=== PATIENT | male | born 1955 | race Caucasian/White ===

== ENCOUNTER → 2017-01-24 | Outpatient (CLI) | payer OTHER ==
[~2017-01-24] MED LIST: /PANT40TA PO; ASPI81TA3 OR; NAPR-239 OR; NAPR-239 PO; PAIN325T PO
== END ==
LOC: M WUC 12:17
PROVIDERS: ATTEND Emergency Medicine
DX: Z00.00 Encounter for general adult medical examination without abnormal findings (principal)

== ENCOUNTER → 2019-03-18 | Outpatient (CLI) | payer OTHER ==
[~2019-03-18] MED LIST changes: -/PANT40TA PO; +ALEV220T22 PO; +BUSP15TA47 PO; +METF-839 PO; +METO1TAB7 PO; +OMEP20TA9 PO; +PRAZ1CAP PO; +PROT1TAB2 PO; +ROSU40TA3 PO; +SERT-138 PO; +VITA50005 PO
[2019-03-18 19:33] LABS: BLOOD UREA NITROGEN 29 MG/DL (7-18); CALCIUM LEVEL 8.7 MG/DL (8.8-10.2); CARBON DIOXIDE LEVEL 30 MEQ/L (21-32); CHLORIDE LEVEL 106 MEQ/L (98-107); CREATININE FOR GFR 1.04 MG/DL (0.70-1.30); GLOMERULAR FILTRATION RATE > 60.0 (>49); GLUCOSE, FASTING 158 MG/DL (70-100); POTASSIUM SERUM 3.9 MEQ/L (3.5-5.1); SODIUM LEVEL 142 MEQ/L (136-145)
[2019-03-18 20:19] LABS: HEMOGLOBIN A1c 6.8 %
== END ==
LOC: M WUC 15:36
PROVIDERS: ATTEND Physician Assistant
DX: E11.69 Type 2 diabetes mellitus with other specified complication (principal)

== ENCOUNTER → 2021-08-04 | Outpatient (CLI) | payer OTHER ==
[~2021-08-04] MED LIST changes: +OMEP20TA2 PO; -OMEP20TA9 PO; -ROSU40TA3 PO; +ROSU40TA4 PO; +ZOLO100T
== END ==
LOC: M LABSMTC 09:31
PROVIDERS: ATTEND Anesthesiology
DX: Z01.812 Encounter for preprocedural laboratory examination (principal); Z20.822 Contact with and (suspected) exposure to COVID-19

== ENCOUNTER 2021-08-09 07:05 | Day surgery (SDC) | payer OTHER ==
[~2021-08-09] VITALS: Ht 175.3 cm; Wt 103.4 kg
[~2021-08-09 07:05] MED LIST changes: +NS 1,000 ML IV ONE
--- OUTSIDE RECORDS SUMMARY | 2021-08-09 07:11 | CCD | Continuity of Care Document ---
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 AUTM [phone] Problems Active Problems Provider Date Essential hypertension Kendrick Moore JR, MD Onset: 02/16/20 19 Social History Type Date Description Comments Sex Unknown ETOH Use Occasionally consumes alcohol Tobacco Use Start: Unknown Denies Smoking Recreational Drug Use Denies Drug Use Allergies, Adverse Reactions, Alerts Description No Known Drug Allergies Medications Active Medications SIG Qnty Indications Ordering Provide r Date Omeprazole 20mg Capsules DR 2 by mouth every day Unknown Metformin HCL 500mg Tablets 2 Tabs qd Unknown Buspirone HCL 15mg Tablets 1 qd Unknown Aspirin 81 Low Dose 81mg Chewtabs 1 qd Unknown Vitamin D (Ergocalciferol) [id number] Capsules 1 Tab 2 Times A Month Unknown Prazosin HCL 1mg Capsules 2 Tabs 2 X A Day Unknown Rosuvastatin Calcium 40mg Tablets 1 qd Unknown Aleve 220mg Tablets 1 tab by mouth as needed Unknown Immunizations Description No Information Available Vital Signs Date Vital Result Comment 06/11/2021 10:23am BP Systolic 119 mmHg BP Diastolic 81 mmHg Body Temperature 98.0 F Height 69 inches 5'9" Weight 235.38 lb BMI (Body Mass Index) 34.8 kg/m2 [place] Body Weight 160 lb Weight 106.766 kg BSA (Body Surface Area) 2.21 m2 02/24/2019 10:32am BP Systolic 144 mmHg BP Diastolic 80 mmHg Height 69 inches 5'9" Weight 248.38 lb BMI (Body Mass Index) 36.7 kg/m2 [place] Body Weight 160 lb Weight 112.663 kg BSA (Body Surface Area) 2.27 m2 Results Description No Information Available Procedures Description No Information Available Medical Devices Description No Information Available Encounters Description No Information Available Assessments Date Code Description Provider 06/11/2021 Z12.11 Encounter for screening for boby gnant neoplasm of colon JAG Ordonez 06/11/2021 Z86.010 Personal history of colonic poly ps JAG Ordonez 06/11/2021 K21.9 Gastro-esophageal reflux disease without esophagitis JAG Ordonez Plan of Treatment No Information Available Functional Status Description No Information Available Mental Status Description No Information Available Referrals Refer to Dr Reason for Referral Status Appt Date Kendrick Moore JR, MD EGD AND/OR COLONOSCOPY Created [address] [place] [id number] [phone] Kendrick Moore JR, MD SCHED EGD AND/OR COLONOSCOPY Scheduled 06/11/[address] [place] [phone] Kendrick Moore JR, MD Closed [address] [place] [phone]
--- OUTSIDE RECORDS SUMMARY | 2021-08-09 07:11 | CCD ---
Author Author [facility] Organization [facility] Address Unknown Phone Unavailable Care Team Providers Care Quarter Folder Name Role Phone Enoc Hawley MD Unavailable Unavailable Enoc Hawley MD Unavailable Unavailable Enoc Hawley MD Unavailable Unavailable Enoc Hawley MD Unavailable Unavailable Enoc Hawley MD Unavailable Unavailable Enoc Hawley MD Unavailable Unavailable Enoc Hawley MD Unavailable Unavailable Enoc Hawley MD Unavailable Unavailable Enoc Hawley MD Unavailable Unavailable Enoc Hawley MD Unavailable Unavailable Enoc Hawley MD Unavailable Unavailable Enoc Hawley MD Unavailable Unavailable Enoc Hawley MD Unavailable Unavailable Enoc Hawley MD Unavailable Unavailable Enoc Hawley MD Unavailable Unavailable Enoc Hawley MD Unavailable Unavailable Enoc Hawley MD Unavailable Unavailable Enoc Hawley MD Unavailable Unavailable Enoc Hawley MD Unavailable Unavailable Enoc Hawley MD Unavailable Unavailable Enoc Hawley MD Unavailable Unavailable Enoc Hawley MD Unavailable Unavailable Enoc Hawley MD Unavailable Unavailable Enoc Hawley MD Unavailable Unavailable Enoc Hawley MD Unavailable Unavailable Enoc Hawley MD Unavailable Unavailable Enoc Hawley MD Unavailable Unavailable Enoc Hawley MD Unavailable Unavailable Enoc Hawley MD Unavailable Unavailable Enoc Hawley MD Unavailable Unavailable Enoc Hawley MD Unavailable Unavailable Enoc Hawley MD Unavailable Unavailable Enoc Hawley MD Unavailable Unavailable Enoc Hawley MD Unavailable Unavailable Enoc Hawley MD Unavailable Unavailable Enoc Hawley MD Unavailable Unavailable Enoc Hawley MD Unavailable Unavailable Enoc Hawley MD Unavailable Unavailable Enoc Hawley MD Unavailable Unavailable Rj Lou MD Unavailable Unavailable Rj Lou MD Unavailable Unavailable Rj Lou MD Unavailable Unavailable Rj Lou MD Unavailable Unavailable Rj Lou MD Unavailable Unavailable XellRj snow MD Unavailable Unavailable DEMARTINI, M MICAH PA Unavailable Unavailable DEMARTINI, M MICAH PA Unavailable Unavailable DEMARTINI, M MICAH PA Unavailable Unavailable DEMARTINI, M MICAH PA Unavailable Unavailable DEMARTINI, M MICAH PA Unavailable Unavailable DEMARTINI, M MICAH PA Unavailable Unavailable DEMARTINI, M MICAH PA Unavailable Unavailable DEMARTINI, M MICAH PA Unavailable Unavailable DEMARTINI, M MICAH PA Unavailable Unavailable DEMARTINI, M MICAH PA Unavailable Unavailable DEMARTINI, M MICAH PA Unavailable Unavailable DEMARTINI, M MICAH PA Unavailable Unavailable DEMARTINI, M MICAH PA Unavailable Unavailable DEMARTINI, M MICAH PA Unavailable Unavailable DEMARTINI, M MICAH PA Unavailable Unavailable DEMARTINI, M MICAH PA Unavailable Unavailable DEMARTINI, M MICAH PA Unavailable Unavailable DEMARTINI, M MICAH PA Unavailable Unavailable DEMARTINI, M MICAH PA Unavailable Unavailable DEMARTINI, M MICAH PA Unavailable Unavailable DEMARTINI, M MICAH PA Unavailable Unavailable DEMARTINI, M MICAH PA Unavailable Unavailable DEMARTINI, M MICAH PA Unavailable Unavailable DEMARTINI, M MICAH PA Unavailable Unavailable DEMARTINI, M MICAH PA Unavailable Unavailable DEMARTINI, M MICAH PA Unavailable Unavailable DEMARTINI, M MICAH PA Unavailable Unavailable DEMARTINI, M MICAH PA Unavailable Unavailable DEMARTINI, M MICAH PA Unavailable Unavailable DEMARTINI, M MICAH PA Unavailable Unavailable DEMARTINI, M MICAH PA Unavailable Unavailable DEMARTINI, M MICAH PA Unavailable Unavailable DEMARTINI, M MICAH PA Unavailable Unavailable DEMARTINI, M MICAH PA Unavailable Unavailable DEMARTINI, M MICAH PA Unavailable Unavailable DEMARTINI, M MICAH PA Unavailable Unavailable DEMARTINI, M MICAH PA Unavailable Unavailable DEMARTINI, M MICAH PA Unavailable Unavailable DEMARTINI, M MICAH PA Unavailable Unavailable DEMARTINI, M MICAH PA Unavailable Unavailable DEMARTINI, M MICAH PA Unavailable Unavailable DEMARTINI, M MICAH PA Unavailable Unavailable DEMARTINI, M MICAH PA Unavailable Unavailable DEMARTINI, M MICAH PA Unavailable Unavailable DEMARTINI, M MICAH PA Unavailable Unavailable Petrancosta, Harnett Ana PA-C Unavailable Unavailabl e Petrancosta, Harnett Ana PA-C Unavailable Unavailabl e Petrancosta, Harnett Ana PA-C Unavailable Unavailabl e Petrancosta, Harnett Ana PA-C Unavailable Unavailabl e Petrancosta, Harnett Ana PA-C Unavailable Unavailabl e Petrancosta, Harnett Ana PA-C Unavailable Unavailabl e Petrancosta, Harnett Ana PA-C Unavailable Unavailabl e Petrancosta, Harnett Ana PA-C Unavailable Unavailabl e Petrancosta, Harnett Ana PA-C Unavailable Unavailabl e Petrancosta, Harnett Ana PA-C Unavailable Unavailabl e Petrancosta, Harnett Ana PA-C Unavailable Unavailabl e Petrancosta, Harnett Ana PA-C Unavailable Unavailabl e Petrancosta, Harnett Ana PA-C Unavailable Unavailabl e Petrancosta, Harnett Ana PA-C Unavailable Unavailabl e Petrancosta, Harnett Ana PA-C Unavailable Unavailabl e Petrancosta, Harnett Ana PA-C Unavailable Unavailabl e Petrancosta, Harnett Ana PA-C Unavailable Unavailabl e Petrancosta, Harnett Ana PA-C Unavailable Unavailabl e Petrancosta, Harnett Ana PA-C Unavailable Unavailabl e Petrancosta, Harnett Ana PA-C Unavailable Unavailabl e Petrancosta, Harnett Ana PA-C Unavailable Unavailabl e Petrancosta, Harnett Ana PA-C Unavailable Unavailabl e Petrancosta, Harnett Ana PA-C Unavailable Unavailabl e Petrancosta, Harnett Ana PA-C Unavailable Unavailabl e Petrancosta, Harnett Ana PA-C Unavailable Unavailabl e ETIENNE, G EDWARD RPA Unavailable Unavailable ETIENNE, G EDWARD RPA Unavailable Unavailable ETIENNE, G EDWARD RPA Unavailable Unavailable ETIENNE, G EDWARD RPA Unavailable Unavailable ETIENNE, G EDWARD RPA Unavailable Unavailable ETIENNE, G EDWARD RPA Unavailable Unavailable ETIENNE, G EDWARD RPA Unavailable Unavailable ETIENNE, G EDWARD RPA Unavailable Unavailable ETIENNE, G EDWARD RPA Unavailable Unavailable ETIENNE, G EDWARD RPA Unavailable Unavailable ETIENNE, G EDWARD RPA Unavailable Unavailable ETIENNE, G EDWARD RPA Unavailable Unavailable ETIENNE, G EDWARD RPA Unavailable Unavailable ETIENNE, G EDWARD RPA Unavailable Unavailable ETIENNE, G EDWARD RPA Unavailable Unavailable ETIENNE, G EDWARD RPA Unavailable Unavailable ETIENNE, G EDWARD RPA Unavailable Unavailable ETIENNE, G EDWARD RPA Unavailable Unavailable ETIENNE, G EDWARD RPA Unavailable Unavailable ETIENNE, G EDWARD RPA Unavailable Unavailable ETIENNE, G EDWARD RPA Unavailable Unavailable ETIENNE, G EDWARD RPA Unavailable Unavailable ETIENNE, G EDWARD RPA Unavailable Unavailable ETIENNE, G EDWARD RPA Unavailable Unavailable ETIENNE, G EDWARD RPA Unavailable Unavailable ETIENNE, G EDWARD RPA Unavailable Unavailable ETIENNE, G EDWARD RPA Unavailable Unavailable ETIENNE, G EDWARD RPA Unavailable Unavailable ETIENNE, G EDWARD RPA Unavailable Unavailable ETIENNE, G EDWARD RPA Unavailable Unavailable ETIENNE, G EDWARD RPA Unavailable Unavailable ETIENNE, G EDWARD RPA Unavailable Unavailable ETIENNE, G EDWARD RPA Unavailable Unavailable ETIENNE, G EDWARD RPA Unavailable Unavailable ETIENNE, G EDWARD RPA Unavailable Unavailable Lani DALE MD Unavailable Unavailable Lani DALE MD Unavailable Unavailable Lani DALE MD Unavailable Unavailable Lani DALE MD Unavailable Unavailable Lani DALE MD Unavailable Unavailable Lani DALE MD Unavailable Unavailable Lani DALE MD Unavailable Unavailable Lain DALE MD Unavailable Unavailable Lani DALE MD Unavailable Unavailable Lani DALE MD Unavailable Unavailable Lani DALE MD Unavailable Unavailable Lani DALE MD Unavailable Unavailable Lani DALE MD Unavailable Unavailable Lani DALE MD Unavailable Unavailable Lani DALE MD Unavailable Unavailable Lani DALE MD Unavailable Unavailable Lani DALE MD Unavailable Unavailable Lani DALE MD Unavailable Unavailable Lani DALE MD Unavailable Unavailable Lani DALE MD Unavailable Unavailable Lani DALE MD Unavailable Unavailable Lani DALE MD Unavailable Unavailable Lani DALE MD Unavailable Unavailable Lani DALE MD Unavailable Unavailable Lani DALE MD Unavailable Unavailable Lani DALE MD Unavailable Unavailable Lani DALE MD Unavailable Unavailable Lani DALE MD Unavailable Unavailable Lani DALE MD Unavailable Unavailable Lani DALE MD Unavailable Unavailable Lani DALE MD Unavailable Unavailable Lani DALE MD Unavailable Unavailable Lani DALE MD Unavailable Unavailable Lani DALE MD Unavailable Unavailable SUYAPA, Lani DIXON MD Unavailable Unavailable SUYAPA, Lani DIXON MD Unavailable Unavailable SUYAPA, Lani DIXON MD Unavailable Unavailable SUYAPA, Lani DIXON MD Unavailable Unavailable SUYAPA, Lani DIXON MD Unavailable Unavailable SUYAPA, Lani DIXON MD Unavailable Unavailable SUYAPA, Lani DIXON MD Unavailable Unavailable SUYAPA, Lani DIXON MD Unavailable Unavailable SUYAPA, Lani DIXON MD Unavailable Unavailable SUYAPA, Lani DIXON MD Unavailable Unavailable SUYAPA, Lani DIXON MD Unavailable Unavailable SUYAPA, Lani DIXON MD Unavailable Unavailable SUYAPA, Lani DIXON MD Unavailable Unavailable SUYAPA, Lani DIXON MD Unavailable Unavailable SUYAPA, Lani DIXON MD Unavailable Unavailable SUYAPA, Lani DIXON MD Unavailable Unavailable SUYAPA, Lain DIXON MD Unavailable Unavailable SUYAPA, Lani DIXON MD Unavailable Unavailable SUYAPA, Lani DIXON MD Unavailable Unavailable SUYAPA, Lani DIXON MD Unavailable Unavailable SUYAPA, Lani DIXON MD Unavailable Unavailable SUYAPA, Lani DIXON MD Unavailable Unavailable SUYAPA, Lani DIXON MD Unavailable Unavailable SUYAPA, Lani DIXON MD Unavailable Unavailable SUYAPA, Lani DIXON MD Unavailable Unavailable SUYAPA, Lani DIXON MD Unavailable Unavailable SUYAPA, Lani DIXON MD Unavailable Unavailable SUYAPA, Lani DIXON MD Unavailable Unavailable SUYAPA, Lani DIXON MD Unavailable Unavailable SUYAPA, Lani DIXON MD Unavailable Unavailable SUYAPA, Lani DIXON MD Unavailable Unavailable SUYAPA, Lani DIXON MD Unavailable Unavailable SUYAPA, Lani DIXON MD Unavailable Unavailable SUYAPA, Lani DIXON MD Unavailable Unavailable SUYAPA, Lani DIXON MD Unavailable Unavailable SUYAPA, Lani DIXON MD Unavailable Unavailable SUYAPA, Lani DIXON MD Unavailable Unavailable SUYAPA, Lani DIXON MD Unavailable Unavailable SUYAPA, Lani DIXON MD Unavailable Unavailable SUYAPA, Lani DIXON MD Unavailable Unavailable SUYAPA, Lani DIXON MD Unavailable Unavailable SUYAPA, Lani DIXON MD Unavailable Unavailable SUYAPA, Lani DIXON MD Unavailable Unavailable SUYAPA, Lani DIXON MD Unavailable Unavailable SUYAPA, Lani DIXON MD Unavailable Unavailable SUYAPA, Lani DIXON MD Unavailable Unavailable SUYAPA, Lani DIXON MD Unavailable Unavailable SUYAPA, Lani DIXON MD Unavailable Unavailable SUYAPA, Lani DIXON MD Unavailable Unavailable SUYAPA, Lani DIXON MD Unavailable Unavailable SUYAPA, Lani DIXON MD Unavailable Unavailable SUYAPA, Lani DIXON MD Unavailable Unavailable SUYAPA, Lani DIXON MD Unavailable Unavailable SUYAPA, Lani DIXON MD Unavailable Unavailable SUYAPA, Lani DIXON MD Unavailable Unavailable SUYAPA, Lani DIXON MD Unavailable Unavailable SUYAPA, Lani DIXON MD Unavailable Unavailable SUYAPA, Lani DIXON MD Unavailable Unavailable SUYAPA, Lani DIXON MD Unavailable Unavailable SUYAPA, Lani DIXON MD Unavailable Unavailable SUYAPA, Lani DIXON MD Unavailable Unavailable SUYAPA, Lani DIXON MD Unavailable Unavailable SUYAPA, Lani DIXON MD Unavailable Unavailable SUYAPA, F DESTINY MD Unavailable Unavailable Lani DALE MD Unavailable Unavailable SUYAPALani MD Unavailable Unavailable Feliciano, L Monse RPA Unavailable Unavailable Feliciano, L Monse RPA Unavailable Unavailable Feliciano, L Monse RPA Unavailable Unavailable Feliciano, L Monse RPA Unavailable Unavailable Feliciano, L Monse RPA Unavailable Unavailable Feliciano, L Monse RPA Unavailable Unavailable Feliciano, L Monse RPA Unavailable Unavailable Feliciano, L Monse RPA Unavailable Unavailable Feliciano, L Monse RPA Unavailable Unavailable Feliciano, L Monse RPA Unavailable Unavailable Feliciano, L Monse RPA Unavailable Unavailable Feliciano, L Monse RPA Unavailable Unavailable Feliciano, L Monse RPA Unavailable Unavailable Feliciano, L Monse RPA Unavailable Unavailable Feliciano, L Monse RPA Unavailable Unavailable Feliciano, L Monse RPA Unavailable Unavailable Feliciano, L Monse RPA Unavailable Unavailable Feliciano, L Monse RPA Unavailable Unavailable Feliciano, L Monse RPA Unavailable Unavailable Feliciano, L Monse RPA Unavailable Unavailable Feliciano, L Monse RPA Unavailable Unavailable Feliciano, L Monse RPA Unavailable Unavailable Feliciano, L Monse RPA Unavailable Unavailable Feliciano, L Monse RPA Unavailable Unavailable Feliciano, L Monse RPA Unavailable Unavailable Feliciano, L Monse RPA Unavailable Unavailable Feliciano, L Monse RPA Unavailable Unavailable Felicinao, L Monse RPA Unavailable Unavailable Feliciano, L Monse RPA Unavailable Unavailable Feliciano, L Monse RPA Unavailable Unavailable Feliciano, L Monse RPA Unavailable Unavailable Feliciano, L Monse RPA Unavailable Unavailable Grzegorz MARTINEZ MD Unavailable Unavailable Grzegorz MARTINEZ MD Unavailable Unavailable Grzegorz MARTINEZ MD Unavailable Unavailable Grzegorz MARTINEZ MD Unavailable Unavailable Grzegorz MARTINEZ MD Unavailable Unavailable Grzegorz MARTINEZ MD Unavailable Unavailable Grzegorz MARTINEZ MD Unavailable Unavailable Grzegorz MARTINEZ MD Unavailable Unavailable Grzegorz MARTINEZ MD Unavailable Unavailable Grzegorz MARTINEZ MD Unavailable Unavailable Grzegorz MARTINEZ MD Unavailable Unavailable Grzegorz MARTINEZ MD Unavailable Unavailable Grzegorz MARTINEZ MD Unavailable Unavailable Grzegorz MARTINEZ MD Unavailable Unavailable Grzegorz MARTINEZ MD Unavailable Unavailable Grzegorz MARTINEZ MD Unavailable Unavailable Grzegorz MARTINEZ MD Unavailable Unavailable Grzegorz MARTINEZ MD Unavailable Unavailable VANVALKENBURG, Grzegorz MÉNDEZ MD Unavailable Unavailable VANVALKENBURG, Grzegorz MÉNDEZ MD Unavailable Unavailable VANVALKENBURG, M HONEY ABDALLA Unavailable Unavailable VANVALKENBURG, Grzegorz MÉNDEZ MD Unavailable Unavailable VANVALKENBURG, Grzegorz MÉNDEZ MD Unavailable Unavailable VANVALKENBURG, M HONEY ABDALLA Unavailable Unavailable VANVALKENBURG, Grzegorz MÉNDEZ MD Unavailable Unavailable VANVALKENBURG, Grzegorz MÉNDEZ MD Unavailable Unavailable VANVALKENBURG, Grzegorz MÉNDEZ MD Unavailable Unavailable VANVALKENBURG, Grzegorz MÉNDEZ MD Unavailable Unavailable VANVALKENBURG, Grzegorz MÉNDEZ MD Unavailable Unavailable VANVALKENBURG, M HONEY ABDALLA Unavailable Unavailable VANVALKENBURG, M HONEY ABDALLA Unavailable Unavailable VANVALKENBURG, M HONEY ABDALLA Unavailable Unavailable VANVALKENBURG, M HONEY ABDALLA Unavailable Unavailable VANVALKENBURG, M HONEY ABDALLA Unavailable Unavailable VANVALKENBURG, M HONEY ABDALLA Unavailable Unavailable VANVALKENBURG, M HONEY ABDALLA Unavailable Unavailable VANVALKENBURG, Grzegorz MÉNDEZ MD Unavailable Unavailable VANVALKENBURG, Grzegorz MÉNDEZ MD Unavailable Unavailable VANVALKENBURG, Grzegorz MÉNDEZ MD Unavailable Unavailable VANVALKENBURG, Grzegorz MÉNDEZ MD Unavailable Unavailable VANVALKENBURG, Grzegorz MÉNDEZ MD Unavailable Unavailable VANVALKENBURG, M HONEY ABDALLA Unavailable Unavailable VANVALKENBURG, Grzegorz MÉNDEZ MD Unavailable Unavailable VANVALKENBURG, Grzegorz MÉNDEZ MD Unavailable Unavailable VANVALKENBURG, Grzegorz MÉNDEZ MD Unavailable Unavailable VANVALKENBURG, Grzegorz MÉNDEZ MD Unavailable Unavailable VANVALKENBURG, Grzegorz MÉNDEZ MD Unavailable Unavailable VANVALKENBURG, Grzegorz MÉNDEZ MD Unavailable Unavailable VANVALKENBURG, Grzegorz MÉNDEZ MD Unavailable Unavailable VANVALKENBURG, Grzegorz MÉNDEZ MD Unavailable Unavailable VANVALKENBURG, Grzegorz MÉNDEZ MD Unavailable Unavailable VANVALKENBURG, Grzegorz MÉNDEZ MD Unavailable Unavailable VANVALKENBURG, Grzegorz MÉNDEZ MD Unavailable Unavailable VANVALKENBURG, Grzegorz MÉNDEZ MD Unavailable Unavailable VANVALKENBURG, Grzegorz MÉNDEZ MD Unavailable Unavailable VANVALKENBURG, Grzegorz MÉNDEZ MD Unavailable Unavailable VANVALKENBURG, Grzegorz MÉNDEZ MD Unavailable Unavailable VANVALKENBURG, Grzegorz MÉNDEZ MD Unavailable Unavailable VANVALKENBURG, Grzegorz MÉNDEZ MD Unavailable Unavailable VANVALKENBURG, Grzegorz MÉNDEZ MD Unavailable Unavailable VANVALKENBURG, Grzegorz MÉNDEZ MD Unavailable Unavailable VANVALKENBURG, Grzegorz MÉNDEZ MD Unavailable Unavailable VANVALKENBURG, Grzegorz MÉNDEZ MD Unavailable Unavailable VANVALKENBURG, Grzegorz MÉNDEZ MD Unavailable Unavailable VANVALKENBURG, Grzegorz MÉNDEZ MD Unavailable Unavailable VANVALKENBURG, Grzegorz MÉNDEZ MD Unavailable Unavailable VANVALKENBURG, Grzegorz MÉNDEZ MD Unavailable Unavailable VANVALKENBURG, Grzegorz MÉNDEZ MD Unavailable Unavailable VANVALKENBURG, Grzegorz MÉNDEZ MD Unavailable Unavailable Grzegorz MARTINEZ MD Unavailable Unavailable Grzegorz MARTINEZ MD Unavailable Unavailable Re-disclosure Warning The records that you are about to access may contain information from federally-assisted alcohol or drug abuse programs. If such information is present, then the following federally mandated warning applies: This information has been disclosed to you from records protected by federal confidentiality rules (42 CFR part 2). The federal rules prohibit you from making any further disclosure of this information unless further disclosure is expressly permitted by the written consent of the person to whom it pertains or as otherwise permitted by 42 CFR part 2. A general authorization for the release of medical or other information is NOT sufficient for this purpose. The Federal rules restrict any use of the information to criminally investigate or prosecute any alcohol or drug abuse patient.The records that you are about to access may contain highly sensitive health information, the redisclosure of which is protected by Article 27-F of the [facility] Public Health law. If you continue you may have access to information: Regarding HIV / AIDS; Provided by facilities licensed or operated by the [facility] Office of Mental Health; or Provided by the [facility] Office for People With Developmental Disabilities. If such information is present, then the following [facility] mandated warning applies: This information has been disclosed to you from confidential records which are protected by state law. State law prohibits you from making any further disclosure of this information without the specific written consent of the person to whom it pertains, or as otherwise permitted by law. Any unauthorized further disclosure in violation of state law may result in a fine or mcc sentence or both. A general authorization for the release of medical or other information is NOT sufficient authorization for further disc losure. Family History Family Member Name Family Member Gender Family Member Status Date o f Status Description Data Source(s) Unknown Unknown Problem [facility] ([facility] Unknown Male Problem [facility] ([facility] () Encounters Encounter Providers Location Date Indications Data Source(s ) Outpatient Attender: MICAH RM 09/03/2021 12:00: 00 AM [facility] Outpatient Attender: Monse Ibanez/Maylin/Georgina alberto 06/11/2021 10:30:00 AM EDT [facility] ([facility]) Outpatient Referrer: MICAH RM 06/01/2021 12:00:00 AM EDT Arthrodesis status [facility] Arthrodesis status Outpatient Attender: MICAH MARES PAReferrer: Enoc rizo MD [id number] 06/01/2021 12:00:00 AM EDT [facility] Outpatient Attender: HONEY MARTINEZ MDReferrer : HONEY MARTINEZ MD [id number] 04/18/2021 12:00:00 AM EDT [facility] Outpatient Referrer: HONEY MARTINEZ MD 04/18/20 12:00:00 AM EDT Varus deformity, not elsewhere classified, right ankle [facility] Varus deformity, not elsewhere classifie d, right ankle Outpatient Referrer: HONEY MARTINEZ MD 04/18/20 12:00:00 AM EDT Varus deformity, not elsewhere classified, right ankle [facility] Varus deformity, 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 Outpatient Attender: PAT ETIENNE RPA 03/01 11:25:36 AM EDT - 03/01/2021 01:16:26 PM EDT [facility] ([facility] ) Outpatient Attender: Omar Lou MD ER-RAD 02/21/2021 11:58:00 AM EDT [facility] Outpatient Attender: HONEY MARTINEZ MD 01/24/2021 12: 00:00 AM EDT [facility] Outpatient Referrer: HONEY MARTINEZ MD 10/25/20 02:30:37 PM EST Pain in right ankle and joints of right foot [facility] Pain in right ankle and joints of right foot Outpatient Attender: HONEY MARTINEZ MDReferrer : Enoc Hawley MD [id number] 10/25/2020 12:00:00 AM EST - 11/16/2020 12:04:41 PM ES T Varus deformity, not elsewhere classified, right ankle [facility] Varus deformity, not elsewhere classifie d, right ankle Outpatient Referrer: HONEY MARTINEZ MD 10/25/20 12:00:00 AM EST Pain in right ankle and joints of right foot [facility] Pain in right ankle and joints of right foot Outpatient Attender: Ana Nieves PA-C Main Office 10/12/2020 12:30:00 PM EST [facility] ([facility] Medications Medication Brand Name Start Date Product Form Dose Route Admi nistrative Instructions Pharmacy Instructions Status Indications Reaction Description Data Source(s) [facility]. Devices (DURABLE MEDICAL EQUIPMENT SEE SIG) XX [facility] 97 [id number] 04/18/2021 12:00:00 AM EDT active Use as directed. Custom fitted [facility] Aspirin 325 MG Delayed Release Oral Tabl et Aspirin EC 325 MG Oral Tablet Delayed Release Aspirin EC 325 MG Oral Tablet Delayed Release 03/21/20 12:00:00 AM EDT 325 mg Oral active Take 1 tablet by mouth daily [facility] Simvastatin 40 MG Oral Tablet Simvastatin 40 MG Oral T ablet (ZOCOR) Simvastatin 40 MG Oral Tablet (ZOCOR) 03/20/2021 12:00:00 AM EDT active [facility] Insulin Glargine 100 UNT/ML Injectable S olution Insulin Glargine 100 UNIT/ML Subcutaneous Solution (LANTUS) Insulin Glargine 100 UNIT/ML Subcutaneou s Solution (LANTUS) 03/10/2021 12:00:00 AM EDT 15 U Subcutaneous active Inject 15 Units into the skin every morning [facility] Aspirin 325 MG Delayed Release Oral Tabl et Aspirin EC 325 MG Oral Tablet Delayed Release Aspirin EC 325 MG Oral Tablet Delayed Release 03/09/20 12:00:00 AM EDT 325 mg Oral aborted Take 1 tablet by mouth daily [facility] Oxycodone Hydrochloride 5 MG Oral Tablet oxyCODONE HCl 5 MG Oral Tablet (ROXICODONE) oxyCODONE HCl 5 MG Oral Tablet (ROXICODONE) 03/09/2021 12:00:00 AM EDT 5 mg Oral active Take 1 t ablet by mouth every 4 (four) hours as needed for up to 3 days, Max Daily Dose: 30 mg [facility] Metformin hydrochloride 1000 MG Oral Tab let metFORMIN HCl 1000 MG Oral Tablet (GLUCOPHAGE) metFORMIN HCl 1000 MG Oral Tablet (GLUCOPHAGE) 12:00:00 AM EDT 1000 mg Oral active Type 2 Diabetes Mellitus Take 1 tablet by mouth Two times daily with meals Indications: Type 2 Diabetes [facility] Type 2 Diabetes Mellitus Sertraline 100 MG Oral Tablet [Zoloft] Zoloft 100 MG O ral Tablet Zoloft 100 MG Oral Tablet 03/09/2021 12:00:00 AM EDT 200 mg Oral active Take 2 tablets by mouth daily [facility] Acetaminophen 325 MG Oral Tablet Acetaminophen 325 MG Oral T ablet 03/09/2021 12:00:00 AM EDT 650 mg Oral active Take 2 tablets by mouth every 6 (six) hours as needed for up to 10 days [facility] Docusate Sodium 100 MG Oral Capsule Docu sate Sodium 100 MG Oral Capsule (COLACE) Docusate Sodium 100 MG Oral Capsule (COLACE) 03/09/2021 12:00:00 AM EDT 100 mg Oral active Take 1 capsule by mouth Two Times Daily for 10 days [facility] insulin lispro 100 UNIT/ML SC injection HIGH DOSE EATI NG INSULIN patients [id number] 03/09/2021 12:00:00 AM EDT U Subcutaneous active Patient Instructions: Please refer to Insulin Sliding Scale Instructions in the Discharge Instructions. [facility] 24 HR metoprolol succinate 50 MG Extende d Release Oral Tablet metoprolol (TOPROL-XL) 24 hr tablet 50 mg metoprolol (TOPROL-XL) 24 hr tablet 50 mg 03/08/2021 09:00:00 PM EDT 50 mg Oral active 50 mg, Oral, 2 Times Daily, First dose (after last modification) on [facility] 03/08/21 at 2100, For 7 doses
Do not crush or chew
[facility] Medication administered onsite Acetaminophen 325 MG Oral Tablet acetaminophen (TYLENO L) tablet 650 mg acetaminophen (TYLENOL) tablet 650 mg 03/08/2021 06:41:23 PM EDT 65 0 mg Oral active 650 mg, Oral, E very 6 hours PRN, Mild Pain (Pain Scale Score 1- 3), Headaches, Fever, Starting on [facility] 03/08/21 at 1841, For 666 hours
Maximum daily dose of acetaminophen is 3,000 mg from all sources in 24 hours.
[facility] Medication administered onsite Metformin hydrochloride 500 MG Oral Tabl et metFORMIN (GLUCOPHAGE) tablet 1,000 mg metFORMIN (GLUCOPHAGE) tablet 1,000 mg 03/08/2021 06:00:00 PM EDT 1000 mg Oral active Type 2 Diabetes Mellitus 1,000 mg, Oral, 2 Times Daily With Meals, Indications: Type 2 Diabetes Mellitus, First dose (after last modification) on [facility] 03/08/21 at 1800, For 56 doses [facility] Type 2 Diabetes Mellitus Medication administered onsite Insulin Glargine 100 UNT/ML Injectable S olution insulin glargine (LANTUS) injection 12 Units insulin glargine (LANTUS) injection 12 Units 09:00:00 AM EDT 12 U Subcutaneous active 12 Units, Subcutaneous, Every morning, First dose (after last modification) on [facility] 03/08/21 at 0900, For 29 doses
For blood glucose less than 70 mg/dL: follow hypoglycemia protocol ( ) and notify provider. For blood glucose values between 70 mg/dL and 100 mg/dL at bedtime: provide snack (15 grams of carbohydrates) with some protein. Administer FULL DOSE of insulin glargine (LANTUS) after snack. Record snack in I&O's. For blood glucose more than 400 mg/dL: notify provider
[facility] Medication administered onsite Sertraline 50 MG Oral Tablet sertraline (ZOLOFT) table t 200 mg sertraline (ZOLOFT) tablet 200 mg 03/08/2021 09:00:00 AM EDT 200 mg Oral active 200 mg, Oral, Daily Standard, First dose (after last modification) on [facility] 03/08/21 at 0900, For 29 doses [facility] Medication administered onsite insulin lispro (HumaLOG) injection HIGH DOSE EATING IN SULIN patients 1-22 Units [id number] 03/07/2021 06:00:00 PM EDT U Subcutaneous active 1-22 Units, Subcutaneous, Three Times Daily-With Meals, First dose on Fri03/07/21 at 1800, For 30 days
Nursing MUST open the 'SQ Insulin Dosing Charts' Sidebar Report, or, the Patient Summary or Summary Report within the ED.
[facility] Medication administered onsite Sertraline 50 MG Oral Tablet sertraline (ZOLOFT) table t 100 mg sertraline (ZOLOFT) tablet 100 mg 03/07/2021 11:00:00 AM EDT 100 mg Oral aborted 100 mg, Oral, Daily Standard, First dose on Fri03/07/21 at 1100, For 30 days [facility] Medication administered onsite Insulin Glargine 100 UNT/ML Injectable S olution insulin glargine (LANTUS) injection 8 Units insulin glargine (LANTUS) injection 8 Units 03/07/2021 09:30:00 AM EDT 8 U Subcutaneous aborted 8 Units, Subcutaneous, Every morning, First dose on Fri03/07/21 at 0930, For 30 days
For blood glucose less than 70 mg/dL: follow hypoglycemia protocol ( H-) and notify provider. For blood glucose values between 70 mg/dL and 100 mg/dL at bedtime: provide snack (15 grams of carbohydrates) with some protein. Administer FULL DOSE of insulin glargine (LANTUS) after snack. Record snack in I&O's. For blood glucose more than 400 mg/dL: notify provider
[facility] Medication administered onsite aripiprazole 10 MG Oral Tablet ARIPiprazole (ABILIFY) tablet 10 mg ARIPiprazole (ABILIFY) tablet 10 mg 03/07/2021 09:00:00 AM EDT 10 mg Oral active 10 mg, Oral, Daily Standard, First dose on Fri03/07/21 at 0900, For 30 days [facility] Medication administered onsite 24 HR metoprolol succinate 50 MG Extende d Release Oral Tablet metoprolol (TOPROL-XL) 24 hr tablet 50 mg metoprolol (TOPROL-XL) 24 hr tablet 50 mg 03/07/2021 09:00:00 AM EDT 50 mg Oral aborted 50 mg, Oral, Daily Standard, First dose on Fri03/07/21 at 0900, For 30 days
Do not crush or chew
[facility] Medication administered onsite Prazosin 1 MG Oral Capsule prazosin (MINIPRESS) capsul e 1 mg prazosin (MINIPRESS) capsule 1 mg 03/07/2021 09:00:00 AM EDT 1 mg Oral active 1 mg, Oral, Daily Standard, First dose on Fri03/07/21 at 0900, For 30 days
Check vital signs before administering
[facility] Medication administered onsite Rosuvastatin calcium 40 MG Oral Tablet rosuvastatin (C RESTOR) tablet 40 mg rosuvastatin (CRESTOR) tablet 40 mg 03/07/2021 09:00:00 AM EDT 40 mg Oral active 40 mg, Oral, Daily Standard, First dose on Fri03/07/21 at 0900, For 5 doses [facility] Medication administered onsite buspirone hydrochloride 7.5 MG Oral Tablet busPIRone ( BUSPAR) tablet 15 mg busPIRone (BUSPAR) tablet 15 mg 03/07/2021 09:00:00 AM EDT 15 mg O ral active 15 mg, Oral, Daily Standard, First dose on Fri03/07/21 at 0900, For 30 days [facility] Medication administered onsite duloxetine 60 MG Delayed Release Oral Ca psule DULoxetine (CYMBALTA) DR capsule 60 mg DULoxetine (CYMBALTA) DR capsule 60 mg 03/07/2021 09:00:00 AM EDT 60 mg Oral active 60 mg, Oral, D aily Standard, First dose on Fri03/07/21 at 0900, For 30 days
Do not crush or chew
[facility] Medication administered onsite sennosides, SHELTER 8.6 MG Oral Tablet senna tablet 2 tablet sen na tablet 2 tablet 03/06/2021 10:00:00 PM EDT 2 {tbl} Oral active 2 tablet, Oral, Nightly, First dose on Fri03/06/21 at 2200, For 30 days [facility] Medication administered onsite 0.3 ML Enoxaparin sodium 100 MG/ML Prefi lled Syringe enoxaparin sodium (LOVENOX) injection 30 mg enoxaparin sodium (LOVENOX) injection 30 mg 03/06/2021 09:00:00 PM EDT 30 mg Subcutaneous active 30 mg, Subcutaneous, Every 12 hours Standard (2 times per day), First dose on Fri03/06/21 at 2100, For 30 days [facility] Medication administered onsite Docusate Sodium 100 MG Oral Capsule docusate sodium (C OLACE) capsule 100 mg docusate sodium (COLACE) capsule 100 mg 03/06/2021 09:00:00 PM EDT 100 mg Oral active 100 mg, Oral, 2 Times Daily, First dose on Fri03/06/21 at 2100, For 30 days [facility] Medication administered onsite Metformin hydrochloride 500 MG Oral Tablet metFORMIN ( GLUCOPHAGE) tablet 500 mg metFORMIN (GLUCOPHAGE) tablet 500 mg 03/06/2021 06:00:00 PM EDT 500 m g Oral aborted Type 2 Diabetes Mellitus 500 mg, Oral, 2 Times Daily With Meals, Indications: Type 2 Diabetes Mellitus, First dose on Fri03/06/21 at 1800, For 30 days [facility] Type 2 Diabetes Mellitus Medication administered onsite insulin lispro (HumaLOG) injection MEDIU M DOSE EATING INSULIN patients 1-16 Units [id number] 03/06/2021 06:00:00 PM EDT U Subcutaneous aborted 1-16 Units, Subcutaneous, Three Times Daily-With Meals, First dose on Fri03/06/21 at 1800, For 30 days
Nursing MUST open the 'SQ Insulin Dosing Charts' Sidebar Report, or, the Patient Summary or Summary Report within the ED.
[facility] Medication administered onsite Cefazolin 2000 MG Injection ceFAZolin (ANCEF) IVPB 2 g in dextrose (premix) ceFAZolin (ANCEF) IVPB 2 g in dextrose (premix) 03/06/2021 04:00:00 PM EDT 2 g Intravenous completed 2 g, Int ravenous, Administer over 30 Minutes, Every 8 hours, First dose on Fri03/06/21 at 1600, For 2 doses [facility] Medication administered onsite ondansetron (ZOFRAN) injection 4 mg [id number] 03/06/2021 01:30:3 9 PM EDT 4 mg Intravenous active 4 mg, In travenous, Every 6 hours PRN, Nausea, Vomiting, Starting on Fri03/06/21 at 1330, For 30 days [facility] Medication administered onsite Acetaminophen 325 MG Oral Tablet acetaminophen (TYLENO L) tablet 650 mg acetaminophen (TYLENOL) tablet 650 mg 03/06/2021 01:30:39 PM EDT 65 0 mg Oral aborted 650 mg, Oral, E very 6 hours PRN, Mild Pain (Pain Scale Score 1- 3), Starting on Fri03/06/21 at 1330, For 30 days
Maximum daily dose of acetaminophen is 3,000 mg from all sources in 24 hours.
[facility] Medication administered onsite Diazepam 5 MG Oral Tablet diazePAM (VALIUM) tablet 5 m g diazePAM (VALIUM) tablet 5 mg 03/06/2021 01:30:39 PM EDT 5 mg Oral active 5 mg, Oral, Every 6 hours PRN, Muscle spasms, Starting on Fri03/06/21 at 1330, For 4 days 21 hours [facility] Medication administered onsite Bisacodyl 10 MG Rectal Suppository bisacodyl (DULCOLAX ) suppository 10 mg bisacodyl (DULCOLAX) suppository 10 mg 03/06/2021 01:30:39 PM EDT 10 mg Rectal active 10 mg, Rectal, Daily PRN, Constipation, Starting on Fri03/06/21 at 1330, For 30 days [facility] Medication administered onsite Oxycodone Hydrochloride 5 MG Oral Tablet oxyCODONE (ROXICODONE) immediate release tablet 5 mg oxyCODONE (ROXICODONE) immediate release tablet 5 mg 03/06/2021 01:30:39 PM EDT 5 mg Oral active 5 mg, Oral, Every 4 hours PRN, Moderate Pain (Pain Scale Score 4-6), Starting on Fri03/06/21 at 1330, For 4 days 21 hours
If no 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 or when 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 has been DC.
Oxycodone immediate release is limited to 10 mg per dose. Higher doses ( only) require Pain Service consultation and approval.
[facility] Medication administered onsite Oxycodone Hydrochloride 5 MG Oral Tablet oxyCODONE (ROXICODONE) immediate release tablet 10 mg oxyCODONE (ROXICODONE) immediate release tablet 10 mg 03/06/2021 01:30:39 PM EDT 10 mg Oral active 10 mg, Oral, Every 4 hours PRN, Severe Pain (Pain Scale Score 7-10), or pre-painful procedure or activity, Starting on Fri03/06/21 at 1330, For 4 days 21 hours
If no 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 or when 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 has been DC.
Oxycodone immediate release is limited to 10 mg per dose. Higher doses ( only) require Pain Service consultation and approval.
[facility] Medication administered onsite Glucagon 1 MG Injection glucagon (human recombinant) ( GLUCAGEN) injection 1 mg glucagon (human recombinant) (GLUCAGEN) injection 1 mg 03/06/2021 01:30:33 PM EDT 1 mg Intramuscular active 1 mg, Intramuscular, PRN, for glucose <55 without IV access, Starting on Fri03/06/21 at 1330, For 30 days [facility] Medication administered onsite dextrose 50 % IV solution 25 mL [id number] 03/06/2021 01:30:33 PM E DT 25 mL Intravenous active 25 mL, Intrav enous, PRN, Other, blood glucose <55, Starting on Fri03/06/21 at 1330, For 30 days
Not for midline administration.
[facility] Medication administered onsite Glucose 0.417 MG/MG Oral Gel glucose (GLUTOSE) 40 % or al gel 15 g glucose (GLUTOSE) 40 % oral gel 15 g 03/06/2021 01:30:33 PM EDT 15 g Oral active 15 g, Oral, PRN, Low blood s ugar, for gluose 55-69 mg/dl and able to take PO, Starting on Fri03/06/21 at 1330, For 30 days [facility] Medication administered onsite Acetaminophen 325 MG Oral Tablet acetaminophen (TYLENO L) tablet 975 mg acetaminophen (TYLENOL) tablet 975 mg 03/06/2021 06:15:00 AM EDT 97 5 mg Oral completed 975 mg, Oral, O nce, On Fri03/06/21 at 0615, For 1 dose
Maximum daily dose of acetaminophen is 3,000 mg from all sources in 24 hours.
Pre-op [facility] Medication administered onsite Calcium Chloride 0.0014 MEQ/ML / Potassi um Chloride 0.004 MEQ/ML / Sodium Chloride 0.103 MEQ/ML / Sodium Lactate 0.028 MEQ/ML Injectable Solution lactated ringers infusion lactated ringers infusion 03/06/2021 06:15:00 AM EDT Intravenous active at 100 mL/hr, Intravenous, Continuous, Starting on Fri03/06/21 at 0615, For 30 days
Keep Vein Open. Use Wide Tubing.
[facility] Medication administered onsite celecoxib 200 MG Oral Capsule celecoxib (CeleBREX) cap marian 200 mg celecoxib (CeleBREX) capsule 200 mg 03/06/2021 06:15:00 AM EDT 200 mg Oral completed 200 mg, Oral, Once, On Fri at 0615, For 1 dose, Pre-op [facility] Medication administered onsite 24 HR Metformin hydrochloride 500 MG Ext ended Release Oral Tablet metformin (GLUCOPHAGE-XR) 500 MG 24 hr tablet metformin (GLUCOPHAGE-XR) 500 MG 24 hr tablet 08/06/2016 12:00:00 AM EDT 500 mg Oral aborted Take 500 mg by mouth Three times daily with meals [facility] Sertraline 100 MG Oral Tablet [Zoloft] ZOLOFT 100 MG t ablet ZOLOFT 100 MG tablet 07/02/2016 12:00:00 AM EDT aborted [facility] Diclofenac Sodium 75 MG Delayed Release Oral Tablet diclofenac (VOLTAREN) 75 MG EC tablet diclofenac (VOLTAREN) 75 MG EC tablet 05/31/2016 12:00:00 AM EDT aborted [facility] Pravastatin Sodium 40 MG Oral Tablet pravastatin (PRAV ACHOL) 40 MG tablet pravastatin (PRAVACHOL) 40 MG tablet 05/31/2016 12:00:00 AM EDT aborted [facility] Aspirin 81 MG Delayed Release Oral Table t Aspirin 81 MG Oral Tablet Delayed Release Aspirin 81 MG Oral Tablet Delayed Release 81 mg Oral aborted Take 81 mg by mouth daily [facility] celecoxib 200 MG Oral Capsule Celecoxib 200 MG Oral Ca psule (CeleBREX) Celecoxib 200 MG Oral Capsule (CeleBREX) 200 mg Oral aborte d Take 200 mg by mouth Two Times Daily [facility] Insurance Providers Payer name Policy type / Coverage type Policy ID Covered constitution party ID Covered constitution party's relationship to [place]in[place] Policy [place] Plan Information OTHER B [id number] Self [id number] OTHER B [id number] Self [id number] OTHER B [id number] Self [id number] [facility] / [id number] Self [id number] [facility] [employer] [id number] Self [id number] [facility] [employer] [id number] Self [id number] [facility] [employer] [id number] Self [id number] [facility] [employer] [id number] Self [id number] [facility] [employer] [id number] Self [id number] [employer] [id number] SP [id number] [facility] [id number] SP [id number] NON LA CARE [id number] [facility] [employer] [id number] Self [id number] Problems, Conditions, and Diagnoses Code Display Name Description Problem Type Effective Dates Data Source(s) Z98.1 Arthrodesis status Arthrodesis status Diagnosis 03/2021 12:34:14 PM [facility] M25.571 Pain in right ankle and joints of right foot Pain in right ankle and joints of right foot Diagnosis 04/18/2021 02:10:49 PM [facility] M19.071 Primary osteoarthritis, right ankle and foot Primary osteoarthritis, right ankle and foot Diagnosis 04/18/2021 02:10:49 PM [facility] M21.171 Varus deformity, not elsewhere classifie d, right ankle Varus deformity, not elsewhere classified, right ankle Diagnosis 04/18/2021 02:10:49 PM [facility] R52 Pain, unspecified Pain, unspecified Diagnosis 03/06/2021 05:55:00 AM [facility] Arthritis of right ankle [M19.071] Arthritis of right ankle [M19.071] Diagnosis 03/06/2021 05:55:00 AM [facility] Acquired varus deformity of right ankle [M21.171] Acquired varus deformity of right ankle [M21.171] Diagnosis 03/06/2021 05:55:00 AM [facility] M16.12 Unilateral primary osteoarthritis, left hip UNILATERAL PRIMARY OSTEOARTHRITIS, LEFT HIP Diagnosis 02/21/2021 11:58:00 AM [facility] Surgeries/Procedures Procedure Description Date Indications Data Source(s) OFFICE OUTPATIENT VISIT 15 MINUTES 06/11/2021 12:00:00 AM EDT [facility] ([facility], ) POCT GLUCOSE, DOCKED <td>POCT GLUCOSE, DOCKED</td ><td>Routine</td><td>03/09/2021 8:42 AM EDT</td><td></td><td> </td> 03/09/2021 08:42:00 AM [facility] BLOOD COUNT COMPLETE AUTOMATED <td>CBC</td><td>Routine </td><td>03/09/2021 5:50 AM EDT</td><td></td><td> </td> 03/09/2021 05:50:00 AM [facility] GLUCOSE QUANTITATIVE BLOOD XCPT REAGENT STRIP <td>POCT GLUCOSE, DOCKED</td><td>Routine</td><td>03/08/2021 9:18 PM EDT</td><td></td><td> </td> 03/08/2021 09:18:00 PM [facility] GLUCOSE QUANTITATIVE BLOOD XCPT REAGENT STRIP <td>POCT GLUCOSE, DOCKED</td><td>Routine</td><td>03/08/2021 5:39 PM EDT</td><td></td><td> </td> 03/08/2021 05:39:00 PM [facility] RESPIRATORY PATHOGEN PANEL <td>RESPIRATORY PATHOGEN PANEL</td><td>Routine</td><td>03/08/2021 4:52 PM EDT</td><td></td><td> </td> 03/08/2021 04:52:00 PM [facility] COVID-19 PCR <td>COVID-19 PCR</td><td>Rou yuri</td><td>03/08/2021 4:52 PM EDT</td><td></td><td> </td> 03/08/2021 04:52:00 PM [facility] GLUCOSE QUANTITATIVE BLOOD XCPT REAGENT STRIP <td>POCT GLUCOSE, DOCKED</td><td>Routine</td><td>03/08/2021 12:35 PM EDT</td><td></td><td> </td> 03/08/2021 12:35:00 PM [facility] GLUCOSE QUANTITATIVE BLOOD XCPT REAGENT STRIP <td>POCT GLUCOSE, DOCKED</td><td>Routine</td><td>03/08/2021 8:27 AM EDT</td><td></td><td> </td> 03/08/2021 08:27:00 AM [facility] BLOOD COUNT COMPLETE AUTOMATED <td>CBC</td><td>Routine </td><td>03/08/2021 4:31 AM EDT</td><td></td><td> </td> 03/08/2021 04:31:00 AM [facility] GLUCOSE QUANTITATIVE BLOOD XCPT REAGENT STRIP <td>POCT GLUCOSE, DOCKED</td><td>Routine</td><td>03/07/2021 8:57 PM EDT</td><td></td><td> </td> 03/07/2021 08:57:00 PM [facility] GLUCOSE QUANTITATIVE BLOOD XCPT REAGENT STRIP <td>POCT GLUCOSE, DOCKED</td><td>Routine</td><td>03/07/2021 5:37 PM EDT</td><td></td><td> </td> 03/07/2021 05:37:00 PM [facility] GLUCOSE QUANTITATIVE BLOOD XCPT REAGENT STRIP <td>POCT GLUCOSE, DOCKED</td><td>Routine</td><td>03/07/2021 12:26 PM EDT</td><td></td><td> </td> 03/07/2021 12:26:00 PM [facility] GLUCOSE QUANTITATIVE BLOOD XCPT REAGENT STRIP <td>POCT GLUCOSE, DOCKED</td><td>Routine</td><td>03/07/2021 8:53 AM EDT</td><td></td><td> </td> 03/07/2021 08:53:00 AM [facility] HEPATITIS C ANTIBODY <td>HEPATITIS C ANTIBODY</td ><td>Routine</td><td>03/07/2021 4:43 AM EDT</td><td></td><td> </td> 03/07/2021 04:43:00 AM [facility] BLOOD COUNT COMPLETE AUTOMATED <td>CBC</td><td>Routine </td><td>03/07/2021 4:43 AM EDT</td><td></td><td> </td> 03/07/2021 04:43:00 AM [facility] BASIC METABOLIC PANEL CALCIUM TOTAL <td>BASIC METABOLI C PANEL</td><td>Routine</td><td>03/07/2021 4:43 AM EDT</td><td></td><td> </td> 03/07/2021 04:43:00 AM [facility] GLUCOSE QUANTITATIVE BLOOD XCPT REAGENT STRIP <td>POCT GLUCOSE, DOCKED</td><td>Routine</td><td>03/06/2021 9:12 PM EDT</td><td></td><td> </td> 03/06/2021 09:12:00 PM [facility] GLUCOSE QUANTITATIVE BLOOD XCPT REAGENT STRIP <td>POCT GLUCOSE, DOCKED</td><td>Routine</td><td>03/06/2021 5:34 PM EDT</td><td></td><td> </td> 03/06/2021 05:34:00 PM [facility] RESPIRATORY PATHOGEN PANEL <td>RESPIRATORY PATHOGEN PANEL</td><td>Routine</td><td>03/06/2021 2:41 PM EDT</td><td></td><td> </td> 03/06/2021 02:41:00 PM [facility] COVID-19 PCR <td>COVID-19 PCR</td><td>Rou yuri</td><td>03/06/2021 2:41 PM EDT</td><td></td><td> </td> 03/06/2021 02:41:00 PM [facility] HEMOGLOBIN GLYCOSYLATED A1C <td>HEMOGLOBIN A1C</td><td>Routine</td><td>03/06/2021 2:41 PM EDT</td><td></td><td> </td> 03/06/2021 02:41:00 PM [facility] BASIC METABOLIC PANEL CALCIUM TOTAL <td>BASIC METABOLI C PANEL</td><td>Routine</td><td>03/06/2021 2:41 PM EDT</td><td></td><td> </td> 03/06/2021 02:41:00 PM [facility] GLUCOSE QUANTITATIVE BLOOD XCPT REAGENT STRIP <td>POCT GLUCOSE, DOCKED</td><td>Routine</td><td>03/06/2021 1:47 PM EDT</td><td></td><td> </td> 03/06/2021 01:47:00 PM [facility] GLUCOSE QUANTITATIVE BLOOD XCPT REAGENT STRIP <td>POCT GLUCOSE, DOCKED</td><td>Routine</td><td>03/06/2021 11:18 AM EDT</td><td></td><td> </td> 03/06/2021 11:18:00 AM [facility] ARTHRODESIS, ANKLE, OPEN <td>ARTHRODESIS, ANKLE, OPEN</td><td></td><td>03/06/2021 7:45 AM EDT</td><td> Acquired varus deformity of right ankle Arthritis of right ankle</td><td></td> 03/06/2021 07:45:00 AM EDT - 03/06/2021 11:45:00 AM EDT Arthritis of right ankleAcquired varus deformity of ri t [facility] Arthritis of right ankle Acquired varus deformity of right ankle GLUCOSE QUANTITATIVE BLOOD XCPT REAGENT STRIP <td>POCT GLUCOSE, DOCKED</td><td>Routine</td><td>03/06/2021 7:27 AM EDT</td><td></td><td> </td> 03/06/2021 07:27:00 AM [facility] US GUIDED PERIPHERAL NERVE BLOCK (OR ONLY) <td>US GUID ED PERIPHERAL NERVE BLOCK (OR ONLY)</td><td>Routine</td><td>03/06/2021 7:10 AM EDT</td><td></td><td></td> 03/06/2021 07:10:00 AM [facility] GLUCOSE QUANTITATIVE BLOOD XCPT REAGENT STRIP <td>POCT GLUCOSE, DOCKED</td><td>Routine</td><td>03/06/2021 6:47 AM EDT</td><td></td><td> </td> 03/06/2021 06:47:00 AM [facility] LAB RESULTS (OUTSIDE/HISTORICAL) <td>LAB RESULTS (OUTSIDE/HISTORICAL)</td><td></td><td>03/02/2021 12:14 PM EDT</td><td></td><td></td> 03/02/2021 12:14:02 PM EDT [facility] SURGERY CASE REQUEST OUTSIDE FACILITY ONLY <td>SURGERY CASE REQUEST OUTSIDE FACILITY ONLY</td><td>Routine</td><td>10/25/2020 3:12 PM EST</td><td> Acquired varus deformity of right ankle Arthritis of right ankle</td><td></td> 10/25/2020 03:12:24 PM EST Arthritis of right ankleAcquired varus deformity of right ankle [facility] Arthritis of right ankle Acquired varus deformity of right ankle Results ID Date Data Source [id number] 06/02/2021 11:07:16 AM [facility] XR ANKLE 3 OR MORE VIEWS [id number] RESU LTInterpreted by:SHAWNA Jordanlinical history: Status post TTC nail insertion right ankleViews: 3 views right ankleIndication: Check alignment status post nailingFindings: The patient has a TTC nail in place in the hindfoot and distal tibia. All hardware appears to be of appropriate length and in good position with no evidence of hardware failure. Distal fibula has been resected. Mild degenerative changes through the midfoot bones are noted. Impression: Status post TTC nail insertion and right hindfoot and ankle.This document has been electronically signed by Pierre Price MD on 06/02/2021 11:05 AM Name Value Range Interpretation Code Description Data Sonia rce(s) Supporting Document(s) ID Date Data Source [id number] 06/01/2021 02:43:21 PM EDT [facility] Name Value Range Interpretation Code Description Data Sonia rce(s) Supporting Document(s) Progress Note [facility] [id number] lbm [file] ICAgICAgICAgICAgICAgICAgICAgICAgICAgICAgICAgICAgICAgICAgICAgICAgICAgICAgICAgICAg ICAgICAgICAgICAgICAgICAgICAgICAgICAgICAgIC AgICAgDQogICAgICAgICAgICAgICAgICAgICAgICAgICAgICAgICAgICAgICAgICAgICAgICAgICAgIC AgICAgICAgICAgICAgICAgICAgICAgICAgICAgICAgICAgICAgICAgICAgICAgDQogICAgICAgICAgIC AgICAgICAgICAgICAgICAgICAgICAgICAgICAgICAg ICAgICAgICAgICAgICAgICAgICAgICAgICAgICAgICAgICAgICAgICAgICAgICAgICAgICAgICAgDQog ICAgICAgICAgICAgICAgICAgICAgICAgICAgICAgICAgICAgICAgICAgICAgICAgICAgICAgICAgICAg ICAgICAgICAgICAgICAgICAgICAgICAgICAgICAgIC AgICAgICAgDQogICAgICAgICAgICAgICAgICAgICAgICAgICAgICAgICAgICAgICAgICAgICAgICAgIC AgICAgICAgICAgICAgICAgICAgICAgICAgICAgICAgICAgICAgICAgICAgICAgICAgDQogICAgICAgIC AgICAgICAgICAgICAgICAgICAgICAgICAgICAgICAg ICAgICAgICAgICAgICAgICAgICAgICAgICAgICAgICAgICAgICAgICAgICAgICAgICAgICAgICAgICAg DQogICAgICAgICAgICAgICAgICAgICAgICAgICAgICAgICAgICAgICAgICAgICAgICAgICAgICAgICAg ICAgICAgICAgICAgICAgICAgICAgICAgICAgICAgIC AgICAgICAgICAgDQogICAgICAgICAgICAgICAgICAgICAgICAgICAgICAgICAgICAgICAgICAgICAgIC AgICAgICAgICAgICAgICAgICAgICAgICAgICAgICAgICAgICAgICAgICAgICAgICAgICAgDQogICAgIC AgICAgICAgICAgICAgICAgICAgICAgICAgICAgICAg ICAgICAgICAgICAgICAgICAgICAgICAgICAgICAgICAgICAgICAgICAgICAgICAgICAgICAgICAgICAg ICAgDQogICAgICAgICAgICAgICAgICAgICAgICAgICAgICAgICAgICAgICAgICAgICAgICAgICAgICAg ICAgICAgICAgICAgICAgICAgICAgICAgICAgICAgIC BgMMQfSRGbHMExEDPkNUe0I1ljSDSoPMWcQV6kUTx1Kr6+RYlOSuXjYJV7prJdvV4NTB3yo8YhARspFL Hdp6IxURl1SY1ERANqBCraAP6QKCdisl4FCGHgTUSyiJMRe7zfKmLrJLF8RTLrIwqgYM6QJYBtD1fbmo EwFYUqVKATMS8JEnFpE5MbfX38ZCFOPj7+DQplbmRv JqkZBiToRMDfc2WmYTb3GB9UHMUkXiivw2QtVjDiIGULXVzsNC1YDIC1YPBzQWVyLo1GJMWxC831kfKe RW1BZf5GJyVjMG5gcs2UGlQaAIPlSyfDJsp2ARrkHP0KgQImDKjDrd6vsoJebuUHf1XzhjKgcBCKKH9z SEczMQUZGL8fvlCcuemdCSGNZWP8QAqaId9sFJRvTH NtWaDaALHGXS5KQODlSHQdtACeMMAdSDFFCP2PZAnwPVX4JMNxuvMqeDAsFBsvZX7RCZTtgnYrPwVtZC BSDQo+Jr0XTH6wt2CjJFxaKUCrAL6snt3XFNaUDgTvN8U1qVWyQ2Q7HNwiXe4BNDFcEJCyPwUwSCQSWF jiKI5BQN3ufjY9SV3WpZEtMUGqWLFuiYKbCUd5C41d kEOpBWymDO6ZQJN+Cornelius+Bn4EMEJiPZEjPBSqFyCuQZXHZmRdQ1LwI5YRx3OgT5JzSS71qIlbzqSlWGpc EF8KPJ9jMWLgDQBHDT0LwSNteG3zftDhRpNkLMUPHyQiJ12wsKFsZOQqBVCgEVDyHa9PFQRiD8NgtnWy tJhkpeLqSNDfHFEITI3OLTdzdnCcdULssZlgIA53rS fqVD1DQv1UWfVzVU0tol0FmNBbEm9KCBBiTX9SWLRcTYEhHEBdCWP2JKZyOjGyZSweDXXwBBSvFEU2ZR OoRBAvEJ3KJvXiMOFuDLn9FAunJZJuBSKnvs4ZQEPnLPBlRMrzFoSjXLIkPLDsVQmhBBLcEFQlETT7MY HvXFHiMJ1PRhBgRWZkSWH0JJNyRRUdDIGdvk4ZMBTb PFWgUgBzHHTnDNVsYELvBWdcROWeTZE4ZRbqTHOmARZgSE4KVcNdCMPyAMS6TmgeAENkCUGksk2OAHVo GENpSCl4SFBmDTXmGNIaWAfyPZJuMOV5CPP0ZLHeCXQsBX0FRbUiAWRtKHHtGTjyQYZoMDSmzh0ULJEt AETjMhE1WjTpXXMkAZIbGYhbCXWkKXA5AlR9SUFtZK DbOP5JUpIfIKWpUFhiBOAgGIFmICWsqh1GOMFyITZoRTP2HLVqIWYhEVNtMLtgERNlGLN9BQKkCZWeJH DdNT3PEnGtPBMmCDf9RPReXSLvRVExhg4SHYFlBNQxCACoVUBgPPNbCBDaVFyrBHSdKBD1Lmq7TLLhAQ IgRW2RFuZhQIHpFJi4KfJxUGEwGTNpro6BRRWoGNSl JSF8WkPrUHYcNOEoDVufMVSwILSlQNLyOQWyRJXpUQ6HTgUaHXDzJjY9LSNfHUSrLQEqgx7JSGYnZAWc CvQ3EfFcJJLgNRAcPXv3jkOjwRTnKRl3QU8HD8HhvePgTsBIQs9Se852MBI5IJTnBo0RL6crLh8aDRWg QYOIQa2NJKx7YSY9KMYjOPByIMWvEPL7IgR9WSV6UN F8ZxjuSHL5ZXW+SCqqReNnOUKxWXBsOhYoKPZjTft6CEi6FNprJNP6ZnW7MM0zETNXAj6+DQpzdGFydH sfGFKSKhVhEyy0IHtgEIYLBy3S ID Date Data Source [id number] 04/27/2021 10:52:29 PM EDT [facility] Name Value Range Interpretation Code Description Data Sonia rce(s) Supporting Document(s) Progress Note [facility] JFSCLw5kHgOZCuVi86/VPCcsGWErw6ApYFyfBTm1EXsdEELbZ1HySAC6tV2oXVW9GDdEHuOdKaSfOlCw lbm [file] ICAgICAgICAgICAgICAgICAgICAgICAgICAgICAgICAgICAgICAgICAgICAgICAgICAgICAgICAgICAg ICAgICAgICAgICAgICAgICAgDQogICAgICAgICAgICAgICAgICAgICAgICAgICAgICAgICAgICAgICAg ICAgICAgICAgICAgICAgICAgICAgICAgICAgICAgIC AgICAgICAgICAgICAgICAgICAgICAgICAgICAgDQogICAgICAgICAgICAgICAgICAgICAgICAgICAgIC AgICAgICAgICAgICAgICAgICAgICAgICAgICAgICAgICAgICAgICAgICAgICAgICAgICAgICAgICAgIC AgICAgICAgICAgDQogICAgICAgICAgICAgICAgICAg ICAgICAgICAgICAgICAgICAgICAgICAgICAgICAgICAgICAgICAgICAgICAgICAgICAgICAgICAgICAg ICAgICAgICAgICAgICAgICAgICAgDQogICAgICAgICAgICAgICAgICAgICAgICAgICAgICAgICAgICAg ICAgICAgICAgICAgICAgICAgICAgICAgICAgICAgIC AgICAgICAgICAgICAgICAgICAgICAgICAgICAgICAgDQogICAgICAgICAgICAgICAgICAgICAgICAgIC AgICAgICAgICAgICAgICAgICAgICAgICAgICAgICAgICAgICAgICAgICAgICAgICAgICAgICAgICAgIC AgICAgICAgICAgICAgDQogICAgICAgICAgICAgICAg ICAgICAgICAgICAgICAgICAgICAgICAgICAgICAgICAgICAgICAgICAgICAgICAgICAgICAgICAgICAg ICAgICAgICAgICAgICAgICAgICAgICAgDQogICAgICAgICAgICAgICAgICAgICAgICAgICAgICAgICAg ICAgICAgICAgICAgICAgICAgICAgICAgICAgICAgIC AgICAgICAgICAgICAgICAgICAgICAgICAgICAgICAgICAgDQogICAgICAgICAgICAgICAgICAgICAgIC AgICAgICAgICAgICAgICAgICAgICAgICAgICAgICAgICAgICAgICAgICAgICAgICAgICAgICAgICAgIC AgICAgICAgICAgICAgICAgDQogICAgICAgICAgICAg ICAgICAgICAgICAgICAgICAgICAgICAgICAgICAgICAgICAgICAgICAgICAgICAgICAgICAgICAgICAg JLSvEGVzEIXkJDCsZGElQRObUYMwMNPcKTNdJJk0A6kdSRViPCVoJU3hVAo0Mh5+PZiWLoMzBJH1czUj nJ4IXK4on5YnROgrMZEqr4AkBFw4LG0PKSUfTGclNE 1PYAluaj9AEQYbDKDrxRAJk8xmUcHvEKW8GXTaSitrCD8NROKxO3hxtaRrUTVnHDLRDO8EMjKrA6IiwD 14OFEJPl3+MWjxeuTuForIFfR5AKQgm8MkNAn0TR7SKAChLxlkq7MnIzVqUUWLCFomQP3DFRD5ZIPtDO ApWo0URGSkM399sbAfEY8ZSz1WZjGoFV9ads2QEbHo DCUgJztBKte3KNkhTS5JwXDiIIpBhh2ilgTqpwBIi6FfboUprCQAu8LwWA8lP5QgkyN5VRnuh5qsSLHk Do3pZc2cTGSgXLRzKjUvIZKLGG3NUHPbWNGcvNEpWFEdOVGZMC6ILZbuCUA8TFQegeEhvHNnSXmoPU5U YXJlbnQgMTkgMCBSDQo+Pt7CTI0ma4KxLQamOUUnPV 2zjf2KIJsYKgLgO2S3zOQaP0M2YNthTl0IJKHoAIFiBXpqVNJIDFmjBZ5DMK8zytR6JW7MbKWfXSMhBI AqjMLvURw2U07yiMAjQLjxZE4VTFP+Cornelius+Ik0RGAOhQQBnMHBtWpCbFODWVfSlH4TyH4FNs5MlD5DaYF 98xHhcaiFySChzBE3UYI2aTNEqXGYDOD6SmAJlcQ8r mwMgWZPwPZXWYlIrN61fvBGiHIMrDKB2CUTyJm4QAYLjB9KmduBqcPifekTuKXMqYYIVQB5JPXiogvZh cQBzgNqrDU98zWwyZY5QCe4XJaIaKU3kkw4AgYNuOd8KGHRcSf7GPAToUGRdTPWvQWY6PDDaIqBoEDoe ATJyTTPqGAK2QDJfCSOjIT2TAeAdMOBgSPgnUKbwNN AhOPZpuk6JFQNvTNUqOTlkBpPwJAWlFKUlRKmmDRJeXLXqAYO2VXOwKHOpVX4MMfAdXUCrNGIuMeMfFF DlZADjqh2BQRIhKMSwTaIdCIAiSQHeASQaITvmJGYiLTTaUTh9HSPlAEEdTY5WRvThJRGsEQTgRODeZK JlUZCagf3PNBMzXHBqUtC9VLEfPTZxREQnONppWCLu FWG5LHVaVFFgTJDpIY1TTxIsMTOtBLK5SiVfJJLlZHSuib4ZLLCnBYYePMrsDSSrZCMdXUUuLEtbQLIw FLT6DxD8QARpDLWxMU4PQtJnVHUpESB9KHIgSYZnWEBodb7GWDYoTAQvUfk9NGPuWBBtMQDrMEovCXPl MMZ0YSDzMLOgFUXjBJ8FYzYoMHDxEEwxWsvmQOUyLU Zsba9MDJVwXHXzKiT9JrNzXGQoEJKyIBpdSYZlTBQ2LZZ1XGYkLVRpXK4NZeMtJPMnBUpiGMHwLRCsAF Kvgg9GVPLnZOYqBIFjNVFnCIBmXMPyHXr7zaBygWWyVWo9HY6LN7VidjKgBuIDFf6Lu436RBKcPBKsTg 4WQ4fuRm2jGHErILCDJw2VTJm4BGNyYkL2MDNxEDnl CFZjXaLdK9H4PMXmLYOxTPbuEYJ+VOo7CnE9Kwc4UZZ4UCIjNAV0CWX9OTDfEIF3CrKxCWP7Ck8bHYZD Cj4+ACwywVIuoPykUTOXYmN2NWq7VLskLGPINn3K ID Date Data Source [id number] 04/27/2021 10:52:24 PM EDT [facility] Name Value Range Interpretation Code Description Data Sonia rce(s) Supporting Document(s) Progress Note [facility] ZPXQXi7rPrNXDsBn98/MHBhxCGQsc1TeTRhlJUf7VDaaOHZqJ7HnWQZ3yI8yIDN8NAmRFdXyKnOhMpRb lbm CvKpyWGtFuXHXqTwzYGtRtRNwdYbppgJHdXC9MqTG2ILGlJ10nQLFfWQBkU1ApLJEgXHW+Dr2YXSGtnR MbEM5CUkxV3Pwjq0sLEs4ysS/SZzb6BSD3eL0+bzMUL9TWA/sN9kqo8NXGPWROk0qXTbsT//alYAmL6C +05MpJD+d9uWy3fZrNmibX3DfCrD//Fdu+h9sMqV3g kuovHN027uv/oVR6NWlUpw/ZJPKAtALLLx/Ivir7+QM/HLheM9qk5ITVKFG6DEEkyR0H0lBS8V5io+Lq C1B9sOwjN1TXtX5EECskFAgstEZdK0m1FbeB0ElXlmRgrOXPDCWiNrO7OzESmN0glDWr1mplmREfe88p eRBmtKhWb7QIK/Qp+JPHWy48Wy22s9m2LKikYOu5N6 fBPlK37gxWblakJextDUCDo4pt9tALy5KnTW+Hypcu+3oWEuHy0j9BWlTwsZpsbqsuvd/DLWsCMrDaUS j0fe09PziVDQGkvwD1N1hGj8E3lmShC3xqTjs58XblJ+FkT8FmJeOaRYItwKPb8cNH3hIEP1+mJeZb9I M2Y7xJjEQSXE6KR5pfCcazz0TYUgaRmWrkrKLrguWq IiDt3mByjDs9SrZVj1tLvT5anjNSWYh6+2c/wEXdJg8ldw3dpXZCwJja3Yk6DhbwCbyZuk8Af98bRGHB KvT6YktwjQKRZV08/cGdzsB1t9T8W1Kk/qgXZZg2j5iWBTbw2v34OjrwZIXFAdYNFgMtfLqeLDpKPijJ S4ivDzaJdZdzzYeRmpAjjLtVg1KiTOi5G9pKrpTBnc Fl5Hdk6O5mN8XfUfm1l2l0TT1FHPoGXoTRYgxkq+g9GP7Jbc3eElJTJygorPgEBQAMCgS7yVSc9tbAA1 [place]+DJGN7fW8M/FWD7yoJSf09vgE6Egj9poNbXiAoyEn5ySQNVee2Y72zatqErdCSmMe3GuraWyXlG4Q [file] 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+Dw3JWXIfOHo9S5A6WEZuQYf7Q7DQC7EQCKEkXLitROzvEQWtTCl3R7H0EJUfR9EMH2Hcwbdnzc4+ VK5SD05XFYRmUJz1I2A5rZZwG5S2lDeCkVJ4KS3XTE0EnOp5pZDbqV8+OI7GS2OKJiIyYEv3P1R9vQUb N7M8eFvYuLA3HC5HNG8JiQWjVVGyppPlRk8eT1FDUS oLVaFFZLS0SQ0MgKNmJA9WiQSEC5FfpWPxHi2jDOnprHOhiV8yVz9pNLrlLP7BEhDTXIsAZDU3GK4YaI QeTU5NgEVRD6FawBWpRp1wEYlnkCDiej3+TE0HLIEiGv4WTd6+ZNpanhOgEsgVWiUmLQBih5DfSKy5WY 6PXJ1dsVgtGAC1Wn9TmJX0nYMvP4hVOS0XpLLrI70d jBUtWLZaFg8RLuE6djIvaP3IAI65bAQiz8R4RNAjW2aoWGroo04rJRprOMoRST6bRVCRFRtpWFieVVJ3 ViZrwvinXUUfSr9YJdOjTFh7eV5lhUZ3QDZ1UmmvzLCxDXpqFdFwUxDuVwJ8aNekazm7VKmpFQ8jFNjt czptZXRhLyc+YZpyNGChHNKyPauEYHTmsY3okmU1hf EoBKvplOIgVi3pr5z6YvuyHn3nQw5eIHa4LdKdBmCwLKTpKk7cyY04XNivnuPkPj3AJmXnCUL7Q0YzEz pSREY+AOenIMquhIz8pOCuDXNiYm0LIUOzPUCiSAQcNAPfPVXzODIgCRQgUXMiZCOxXMBdGGWuVHRjSB AgICAgICAgICAgICAgICAgICAgICAgICAgICAgICAg LCTrBCCxTYMvPCFrRVYdCPTwLJWyAUIlYFApVRTfYZ2ZFSAhEFJoGBChBBOtNIYqNALxKMSsZIMrSCGa ICAgICAgICAgICAgICAgICAgICAgICAgICAgICAgICAgICAgICAgICAgICAgICAgICAgICAgICAgICAg RQEaYBDyUAZhUPThYA3BNSFdIQDtQRVtTYBuUIZlKL AgICAgICAgICAgICAgICAgICAgICAgICAgICAgICAgICAgICAgICAgICAgICAgICAgICAgICAgICAgIC OtWAOvWZQxCKZvIVEiIMIfRNFzYOZhZJ2YQCUfGFZtKCGiKIZyACErGGMqUKIyGBWjUQZmCMPdALAqLV AgICAgICAgICAgICAgICAgICAgICAgICAgICAgICAg TZSbMUMwZHMbWINrGLDiYZPoYLXyLIBkBXNjIHRwNVGyIW2NZNZvYOEvDHBfVVYgPGRgIGMqIKCuRWYk ICAgICAgICAgICAgICAgICAgICAgICAgICAgICAgICAgICAgICAgICAgICAgICAgICAgICAgICAgICAg WGZgEEXoQKSnBHXcLEFnYV4SHIUxTENhGEJhNJFsRB AgICAgICAgICAgICAgICAgICAgICAgICAgICAgICAgICAgICAgICAgICAgICAgICAgICAgICAgICAgIC MuZPWnLATpKGKsCXIhYWJkJIObYUEjFTMfSA5KVDYdPSOcMLWeILMgVVPoYFAgDUXpGQXaGDLdSMCmLI AgICAgICAgICAgICAgICAgICAgICAgICAgICAgICAg FLVpLZZjFARyMCEsETYwBIRwZINrCUReZESfRSWtDKKaLSQmHS4RNAViVTAmQHTyTIDwVMGrQEUcSNTv ICAgICAgICAgICAgICAgICAgICAgICAgICAgICAgICAgICAgICAgICAgICAgICAgICAgICAgICAgICAg PCXvPDSaDJLvXBXmLLLgQSSrNW8HEDDhVDFoKXFmPP AgICAgICAgICAgICAgICAgICAgICAgICAgICAgICAgICAgICAgICAgICAgICAgICAgICAgICAgICAgIC KcFDClSNIyDMPfBTZcBHJbSKPjFUXqTIIlAONfTJ1AYANkBBVsRRTvBKKcMTQcWBUnFOXnUQQaPNEwBK AgICAgICAgICAgICAgICAgICAgICAgICAgICAgICAg TUGiHPRuEMDaJZZxTRBdCLQyLWVgJWNdIOQjQVHpPELlOZDcGYKtZJ2NNN37tFAty4W0OFUnVF6hnro/ Or4CEJbasxHnzUErDD8WImGpDX1xcl2WXhAqIL4kyf0LQUyABuSzP0B2aBCeMTMxZGMDZnXfS87jCTru Mp84FJilHWUqJcGaEZs2Uz2KPbExP1swWYOdPcA2GI ZjRuH3FLCrLyDsHDfpIC1Tg1CrkXScDVx+Qz7VSG3kw1YwJFndKAJsPZ4wna4JYIvPMnZqP2YevnC8OS H4EFFjBc4OWKYlPBJpqTXgPMZqLUCDPaYdV1XiaF40PQWZIu5+LIqvpzWxCzrKZqB4LCBrd2HmRUn0HS 3QAGDuPLz0bWBvXKZuM3Edy3MhDj72VQOnOntxJ8Ff nFDjYIVWGF77LUnsCV0btYHqCVSAUVLqoWA5StHaMzPhLvAnXSR7HYAxAQ2lXZgyCG6PPXB6HCzvPKYf XUNeE5cUNeLtPWCwFEPbzZcwCB2PBgIpN4WejdKczWTdKXNdTXCWAx2+CDyaaxYlRbiFEtC0XTIpf6Ij EYr2JJ4NLGNcRBocQV9GHSSpiS9qTKkwHK8ZUzPlFu ZxEFZUYbOeV24rnUMmNGn6Y6AvYqKsFIGjQrrdYMNqGIbmDrVoHJYiIiHoFQepIA5+ID4+EUboJC7MFE xcnvYfIBJfHx4GSCHbGXRfNS6mEYCaNYGlE7B4fLykGFBAJgRbU2csyygeCN4gLLPcF874jUtvgiYlGA C4TGDrHo2NFBAoDKE3ZQBzgJWlUwBuZFNNRShtCL6U wDOnDSB6qM1lWLveCCXdNSAcW9kRJpWbeIkaRV83eIejuyGpxMEoGBl+Gg7ACO9hh3SwJNi1qgWrUPso WQP6ZYetBACcULZqBSSsDSP4RRP6UMFZJlDrJDKrEVMsCNngPDUuYXRwmk0OZCYhCRItOQE1FIJaRHZs YHPfRYpcSDYzJLDeRZE2XELfHHAhSX1VUvGfLYSfOM JtLUxlFTUoXDWrrj6ATIXhUQAoCvDlFNFwCIZmYIJhXPymIRQvODXyKHQzCIYkLGZjUK6KBbCyXRWkGQ Z2XMHgALGoZNJska8VZJIeGUIhRDY0NeRhGUUyQOPcQOgxEUGwRWJ0DtJ8EBMvLDQsEP2CCrBgXPXaUV T6NCGwPGCuPWYzcf4FMCBtUQLgAsJhBoQuAXBiXVLt VFnkGQAcTOG8XSlcSKZhLWKvMQ2XOoSfZNMeVCqhZKLeERWaDEGbvk2XUOEsHYTlFbN7PhAeJKDiZTBu XWtgIEHtGEO0EKNaNBQuSECqFN0BDgMgXMQdFLheHahbBIFmIXAcdx6ZLPTvVHCkBKR0KfVcVJBwUXIv UAqrFDIuXBM0CYf6QBKnYDEjVC9JDqIyIUVcPQh3QL XxYFRzOLUdxn0EFLOpRYZfUYJ6WzZrSOTwYESsYRtrXQKtVQVkOQl5HLBtVNCgQC9YMeArGSHpUuZtSR UkRUAjFSKdlw3AVVIoGRSuOCW6KGDzCGFfJWXgYDmtMYMrAVWeABNiJBFmNKEcNK5CYiSvFKUbRnS5HR NsYTNfVPDaif7ZEDHlBOHoGsX4WJKnRNZiTLBvGOm0 swNisNThOKi1GI2FO6RplnDsLraDXk9Ri525SBR4EHVvWa0MF1ptRy2aFLGjPDWUDk0MOTl9MONsPDsz MFO7QUXiW8AaNOPpNfOzRraeXjCeARDtOWC+KKg7XfNuHMUeSLjvXXWrR5K6NyQfYYUqF4VdJDQcN3Lm Ap9hKZZWWi2+LYndkORocZkbNWOXFpFsYrd6NQvwPSLUSb2X ID Date Data Source [id number] 04/21/2021 10:47:53 AM EDT [facility] XR ANKLE 2 VIEWS [id number] RESULTInterp reted by:Pierre Price, MDClinical history: Status post TTC nail insertion right ankleViews: 2 views right ankle and 3 views right footIndication: Check alignment status post nailingFindings: The patient has a TTC nail in place in the hindfoot and distal tibia. All hardware appears to be of appropriate length and in good position with no evidence of hardware failure. Distal fibula has been resected. Mild degenerative changes through the midfoot bones are noted. No acute trauma to the metatarsals or phalanges is noted.Impression: Status post TTC nail insertion and right hindfoot and ankle.This document has been electronically signed by Pierre Price MD on 04/21/2021 10:45 AM Name Value Range Interpretation Code Description Data Sonia rce(s) Supporting Document(s) ID Date Data Source [id number] 04/21/2021 10:47:33 AM EDT [facility] XR FOOT 3 OR MORE VIEWS [id number] RESUL TInterpreted by:Pierre Price [facility]: Status post TTC nail insertion right ankleViews: 2 views right ankle and 3 views right footIndication: Check alignment status post nailingFindings: The patient has a TTC nail in place in the hindfoot and distal tibia. All hardware appears to be of appropriate length and in good position with no evidence of hardware failure. Distal fibula has been resected. Mild degenerative changes through the midfoot bones are noted. No acute trauma to the metatarsals or phalanges is noted.Impression: Status post TTC nail insertion and right hindfoot and ankle.This document has been electronically signed by Pierre Price MD on 04/21/2021 10:45 AM Name Value Range Interpretation Code Description Data Sonia rce(s) Supporting Document(s) ID Date Data Source [id number] 04/03/2021 07:13:01 AM EDT [facility] Name Value Range Interpretation Code Description Data Sonia rce(s) Supporting Document(s) Progress Note [facility] XCKYHj3zOcRJEbVp92/EMQgwPVVhh2XaSEdlEXd3SFqyFWOpA1FwKGK4hP8dDGG6KCkYDmBgJbWjWiU5 lbm [file] GUX0DvAfHcJ6YNG3MJQtFY4tKCYWHx8+FJayiEVffUqxERPQPmJxZde3RXodTJNBIt1B ID Date Data Source [id number] 03/23/2021 07:47:54 AM EDT [facility] Name Value Range Interpretation Code Description Data Sonia rce(s) Supporting Document(s) Operative Note [facility] ESBIZp3cXvDBWsAx89/HMRhgFAYpo8DvRCzgPVs4LPpiJQKhZ5NxOKI5yS4fCIL2EKuNNpSjMcEpVHF8 lbm [file] CZBmAZG9AvSiHNVmVLT0NlF+ZN6vZWh+Al8Zo6DvidD3nwQuNGmcDRU2Vd8VDVRXQ5GWTp== ID Date Data Source [id number] 03/16/2021 02:56:59 PM EDT [facility] XR ANKLE 2 VIEWS [place] [id number] RESU LTInterpreted by:Radha Hinds MDThidarius statement is intended for documentation purposes only.This exam was performed in the Operating Room by the Surgeon and a Radiologist was not present. Please refer to the Operative note in EPIC. This document has been electronically signed by Radha Hinds MD on 03/16/2021 2:54 PM Name Value Range Interpretation Code Description Data Sonia rce(s) Supporting Document(s) ID Date Data Source [id number] 03/09/2021 11:35:53 AM EDT [facility] Name Value Range Interpretation Code Description Data Sonia rce(s) Supporting Document(s) Discharge Summary [facility] LXNPPh3sKmBNIsQg00/NNKpzTPVac8KxMDenISl3SGpcOMNxM2NjEUH4hK9wPCG4IAjEMnRqOgUrUVL6 lbm [file] Io6VBvl7UmMIFaKpXO1IUDk= ID Date Data Source [id number] [facility] Code Description Data Sonia rce(s) Supporting Document(s) Glucose [Mass/volume] in Capillary blood by Glucometer 185 mg/dL 70- 140 [facility] ID Date Data Source [id number] 03/09/2021 06:00:39 AM [facility] Value Range Interpretation Code Description Data Sonia rce(s) Supporting Document(s) Leukocytes [#/volume] in Blood by Automated count 5.0 10*3/uL 4-10 [facility] Erythrocytes [#/volume] in Blood by Automated count 3.52 10*6/uL 4.6- 6.1 L [facility] Hemoglobin [Mass/volume] in Blood 10.7 g/dL 13.5-18 L [facility] Hematocrit [Volume Fraction] of Blood by Automated count 31.5 % 4 1-53 L [facility] Erythrocyte mean corpuscular volume [Entitic volume] by Auto mated count 89.4 fL 80-96 [facility] Erythrocyte mean corpuscular hemoglobin [Entitic mass] by Automated count 30.5 pg 27-33 [facility] Erythrocyte mean corpuscular hemoglobin concentration [Mass/volume] by Automated count 34.1 g/dL 32.0-[facility] distribution width [Ratio] by Automated count 13.0 % 11.5-14.5 [facility] Platelets [#/volume] in Blood by Automated count 152 10*3/uL 150-400 [facility] ID Date Data Source [id number] 03/08/2021 09:20:45 PM [facility] Value Range Interpretation Code Description Data Sonia rce(s) Supporting Document(s) Glucose [Mass/volume] in Capillary blood by Glucometer 190 mg/dL 70- 140 [facility] ID Date Data Source [id number] 03/08/2021 05:41:10 PM EDT [facility] Name Value Range Interpretation Code Description Data Sonia rce(s) Supporting Document(s) Glucose [Mass/volume] in Capillary blood by Glucometer 147 mg/dL 70- 140 [facility] ID Date Data Source [id number] 03/08/2021 04:52:00 PM EDT [facility] Name Value Range Interpretation Code Description Data Sonia rce(s) Supporting Document(s) SARS-CoV-2 RNA 2019 nCoV Real-Time RT-PCR: NOT DETECTED [facility] This lab was ordered by [facility] and reported by [facility] ID Date Data Source [id number] 03/08/2021 08:21:41 PM EDT [facility] Service Cmnt XXX-Imp : NoneRespiratory P CR Panel : PCR ResultsMicroorganism XXX Cult : See Labs Tab for 2019 nCoV RT-PCR resultsHAdV DNA QI BRETT+non-probe : Not DetectedHCoV 229ERNA Nph QI BRETT+non-probe : Not DetectedHCoV SDA6LRT Nph QI BRETT+non-probe : Not VdkpwxceKYaCMV96 RNA Nph QI BRETT+non-probe : Not PljvutcaYZcEJY37 RNA Upper resp QI BRETT+probe : Not DetectedhMPV RNA Nph QINAA+non-probe : Not DetectedRV+EV RNA Nph QI BRETT+non-probe : Not DetectedFLUAV RNA Nph QI BRETT+ non-probe : Not DetectedFLUBV RNA Nph QI BRETT+non-probe : Not DetectedHPIV1 RNA NphQINAA+non-probe : Not DetectedHPIV2 RNA Nph QINAA+non-probe : Not DetectedHPVI3 RNA Nph BRETT+non-probe : Not DetectedHPIV4 RNA Nph Q BRETT+non-probe : Not DetectedRSV RNA Nph Q BRETT+non-probe : Not DetectedB pert.PT PrmtNph Q BRETT+non-probe : Not DetectedC pneum DNA Nph Q BRETT+non-probe : Not DetectedM pneum DNA Nph Q BRETT+non-probe : Not DetectedB [id number] DNA Nph BRETT+non-probe : Not Detected Name Value Range Interpretation Code Description Data Sonia rce(s) Supporting Document(s) ID Date Data Source [id number] 03/08/2021 08:20:25 PM EDT [facility] Name Value Range Interpretation Code Description Data Sonia rce(s) Supporting Document(s) Specimen source [Identifier] of Unspecified specimen [facility] SARS-CoV-2 RNA 2019 nCoV Real-Time RT-PCR: NOT DETECTED [facility] Assay Performed [facility] Patients first test for condition [facility] Patient employed in healthcare setting [facility] Patient has symptoms related to condition [facility] When did you start to experience these symptoms [Date and time] [Phen X] [facility] Patient was hospitalized because of this condition [facility] patient was admitted to ICU for condition [facility] Patient resides in a congregate care setting [facility] status [facility] ID Date Data Source [id number] 03/08/2021 12:37:29 PM EDT [facility] Name Value Range Interpretation Code Description Data Sonia rce(s) Supporting Document(s) Glucose [Mass/volume] in Capillary blood by Glucometer 185 mg/dL 70- 140 H [facility] ID Date Data Source [id number] 03/08/2021 08:28:48 AM [facility] Value Range Interpretation Code Description Data Sonia rce(s) Supporting Document(s) Glucose [Mass/volume] in Capillary blood by Glucometer 230 mg/dL 70- 140 [facility] ID Date Data Source [id number] 03/08/2021 04:58:24 AM [facility] Value Range Interpretation Code Description Data Sonia rce(s) Supporting Document(s) Leukocytes [#/volume] in Blood by Automated count 6.5 10*3/uL 4-10 [facility] Erythrocytes [#/volume] in Blood by Automated count 3.62 10*6/uL 4.6- 6.1 L [facility] Hemoglobin [Mass/volume] in Blood 11.1 g/dL 13.5-18 L [facility] Hematocrit [Volume Fraction] of Blood by Automated count 32.5 % 4 1-53 L [facility] Erythrocyte mean corpuscular volume [Entitic volume] by Auto mated count 89.8 fL 80-96 [facility] Erythrocyte mean corpuscular hemoglobin [Entitic mass] by Automated count 30.6 pg 27-33 [facility] Erythrocyte mean corpuscular hemoglobin concentration [Mass/volume] by Automated count 34.1 g/[facility].0[facility] width [Ratio] by Automated count 13.1 % 11.5-14.5 [facility] Platelets [#/volume] in Blood by Automated count 154 10*3/uL 150-400 [facility] ID Date Data Source [id number] 03/07/2021 08:59:18 PM EDT [facility] Name Value Range Interpretation Code Description Data Sonia rce(s) Supporting Document(s) Glucose [Mass/volume] in Capillary blood by Glucometer 280 mg/dL 70- 140 H [facility] ID Date Data Source [id number] 03/07/2021 05:38:56 PM EDT [facility] Value Range Interpretation Code Description Data Sonia rce(s) Supporting Document(s) Glucose [Mass/volume] in Capillary blood by Glucometer 235 mg/dL 70- 140 [facility] ID Date Data Source [id number] 03/07/2021 12:32:57 PM EDT [facility] Value Range Interpretation Code Description Data Sonia rce(s) Supporting Document(s) Glucose [Mass/volume] in Capillary blood by Glucometer 297 mg/dL 70- 140 [facility] ID Date Data Source [id number] [facility] Code Description Data Sonia rce(s) Supporting Document(s) Progress Note [facility] [id number]/OJObxCWTky4VuCOzgAXl9CGwrEECcP7WjJQS2lY4dEKL4YBrYBuWtLwOpLDRd [facility] [file] [id number] ID Date Data Source [id number] 03/07/2021 10:45:25 AM EDT [facility] Name Value Range Interpretation Code Description Data Sonia rce(s) Supporting Document(s) Progress Note [facility] [id number]/GXAynRDSwj3GnWWnbIZl1AIzyFTNmZ6IgGMJ6tQ3aRSU7UCpDUvSyLfSgRPPp lbm [file] 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+Kv1GRJVsLF3JmKMLI0CeyLPwEQdbC6UIFB9WCX N8UM8AoMBrXR7BqLVJW2IbkJRiWn6hOQXav4LwPw1aH9EHGRXAISNqXLzxRRlxFCFtJEv1M4V0JIBlY0 ZYI227eURrjAo9Cs9iZ2XSJMsFDgFjKRevEKkuSSOcJEx1K7M3WNRdJ6ZLO5UnHhMlmjOvP1K+PiAvUE XJTK3NKNIRFNr6Z9K1kGSyB7T7bUdCpPE1TL3ALS6X lHOnyHYti44+YbPQTmIdBMXzU0LKKGGDSxCjDCloDVhvBSTbDSz8V9G1VSTjI1OXF7ghA5y0JC4+PiAN XqTgSZJwGt4CMwAeMe1MSlZkED5usc0ZDRSbZAPySslDRcc1A7mswbo2tSSeYfI7X7U4HfJ9jOBwZS4V N5H6oQSdNJR0JNKrjYC+Mj3Jm6SfKERiCLp3B8ejZJ QiIRWmZgUrlI65J++1cgyhkTA4W2h7PFFPcHKxpZgSkdBmV1gPBXJ3e6D9NRk/Mz4GPKM9mFo6uCOhFU SlQUj8cX1qnTn1WyDtVQ57FCJtZXxtyG7qHuw5Z8Cov0TxNg0hLj9otZCrMv1IUwKhNBA3afOoSvLEBv L5kFuloaorMOY1O2n4tQW6Zl79j4mwrhEwl4JhJxD9 SCehVMVyXfPkvmPvPJX8hoKckG7jitKmUv0ICNSmVKobawTrEgNZFi0BYdCiAI82ZbtawU3sbCH+DQog ICAgICAgICAgICAgICAgICAgICAgICAgICAgICAgICAgICAgICAgICAgICAgICAgICAgICAgICAgICAg ICAgICAgICAgICAgICAgICAgICAgICAgICAgICAgIC AgICAgICAgDQogICAgICAgICAgICAgICAgICAgICAgICAgICAgICAgICAgICAgICAgICAgICAgICAgIC AgICAgICAgICAgICAgICAgICAgICAgICAgICAgICAgICAgICAgICAgICAgICAgICAgDQogICAgICAgIC AgICAgICAgICAgICAgICAgICAgICAgICAgICAgICAg ICAgICAgICAgICAgICAgICAgICAgICAgICAgICAgICAgICAgICAgICAgICAgICAgICAgICAgICAgICAg DQogICAgICAgICAgICAgICAgICAgICAgICAgICAgICAgICAgICAgICAgICAgICAgICAgICAgICAgICAg ICAgICAgICAgICAgICAgICAgICAgICAgICAgICAgIC AgICAgICAgICAgDQogICAgICAgICAgICAgICAgICAgICAgICAgICAgICAgICAgICAgICAgICAgICAgIC AgICAgICAgICAgICAgICAgICAgICAgICAgICAgICAgICAgICAgICAgICAgICAgICAgICAgDQogICAgIC AgICAgICAgICAgICAgICAgICAgICAgICAgICAgICAg ICAgICAgICAgICAgICAgICAgICAgICAgICAgICAgICAgICAgICAgICAgICAgICAgICAgICAgICAgICAg ICAgDQogICAgICAgICAgICAgICAgICAgICAgICAgICAgICAgICAgICAgICAgICAgICAgICAgICAgICAg ICAgICAgICAgICAgICAgICAgICAgICAgICAgICAgIC AgICAgICAgICAgICAgDQogICAgICAgICAgICAgICAgICAgICAgICAgICAgICAgICAgICAgICAgICAgIC AgICAgICAgICAgICAgICAgICAgICAgICAgICAgICAgICAgICAgICAgICAgICAgICAgICAgICAgDQogIC AgICAgICAgICAgICAgICAgICAgICAgICAgICAgICAg ICAgICAgICAgICAgICAgICAgICAgICAgICAgICAgICAgICAgICAgICAgICAgICAgICAgICAgICAgICAg ICAgICAgDQogICAgICAgICAgICAgICAgICAgICAgICAgICAgICAgICAgICAgICAgICAgICAgICAgICAg ICAgICAgICAgICAgICAgICAgICAgICAgICAgICAgIC EpAUOeTNDlAVHgLXEiPZOpNTb1O2brNHBwBHMeZN7sFGj1Ig5+SBlJNeWiKRR1qrLmoZ4CAG7cv9InMQ nlPSOrc9EpQPa1AL0IPTMvDGllVZ6XDRguoy8XWFSaJIRfhPZVa9njXhHfAJG4QIBlGhpvIK7RYXVhY9 bkbuLtNYZsEDNJOV1UKrAiQ1DdsE79FRTSQr2+DQpl oyCyWcuTKaQ4MFWwa8ZuIRc8OG8PBLYyXnljw0UaKXDfYPZXLBtbST3TNYS2BIE8VTAnCh2XPJOqQ748 lnIiIY1BOe3CVzQcSI7lcr6ZHNFdOMCgYurXOkh0GOnpFV3CuCVwIZiFrq4zlqIhjlRFb3WgxfQhfBTU ySybYPJJJYFxuCBbgnhnOe7rWYIaZK4sQy6aKXVlNS MeBuO5NDTIQY4FRKUhDOGpxMTiRYKqQBFWDS0LQKilSQT3URHnezQbxCSoGKunPU8YTICgywCpUBZqOJ BSDQo+Ay2XUA8xh1CgGTbqIpCtEW7lwh1ZHBkLJlPgE3U2bCRgW3R6IZrfQc7RYXOeRROlUWMnPMSHYG lyDI3ETX0yddC2GS8DdPEuMNNjYLIuaDIdFDv3Y40i pEXtRJkuUA7GNKI+Cornelius+Om2HPLCfKZDeXTFuFzVdNEQWPhKlC2YyA9CSr7XkE1NrRS78fStgdpNhKEdx OK2IBK6gRNShITIPHV1BnDDzgQ2eqvUhIQKrNBESIxIsZ02ycBToNEKlSLDqNHFqJg7ZLPVvD5QipoZb pXgldfCrJVEzWNGDGG0ZIEfzzhFggYRftPnyGE75pI ltBM6AJh6VLgEeHZ7obv3XyFEyNj3SPXFyWb3FDTLaKEOmLTPgLFX6RIYfQnFxVEcoHFFsLPWqCSJ2FJ OdXPBdDD8AQyPuXELuIED0SXDvGPXfIZLtus5RLZEeHMGxJiG1ZqDgNJFbGPWnIFxmUHVaIMAbXWA6PV UcEODuAR7FEeAySGUfSQI4PWRsAQIiSDEtie0BLCGf BLAkVDu9TtWdODFdXEPwHZqwKIOkEPPkSYC7RJCtTUKpEB1AQpSzYXGoJTSuHFAnMEHhRBRigx5TQICi CXZkWpQ5DTBrGFUzGFSjQAkyJTJmYBE0CWZ4VBOuZOHrPE9QHiJmECZgVSYfCESyYIPiMPFyrj6RLUZo EIXzVNGhOCHoBDFrDSCrTDcgMBTtMSF6VEGxTOSsGC MkUQ6TBaJyXKVlQAPkVcTnEHGkAKXmyk9GFBCtEYMiVcU3AQYxAZYzFHNeKXfuSHFxRYS0MPvhYXUtUM LvNM2BYsDuQDutGZHMJtu0VFlwW3o0YEAuZu3NL2Evn8EgYBNwUXBXQFonWH1briYiMZUwBd3CH0eEXy ywHkGhTPPfToA7IbsrD8WjMbObKeR2KRImRJOkKXWz OS8wOQOxIIS4AMVyZLZyOiQmBAKxAvGcJwYrN6RvNVA0C3N2IeSmYW5HNu2TGdE3AFE3aPVzZf9UNnpf NK6IFFFTN8IYJa== ID Date Data Source [id number] 03/07/2021 09:06:37 AM EDT [facility] Name Value Range Interpretation Code Description Data Sonia rce(s) Supporting Document(s) Glucose [Mass/volume] in Capillary blood by Glucometer 253 mg/dL 70- 140 H [facility] ID Date Data Source [id number] 03/07/2021 09:16:55 PM EDT [facility] Name Value Range Interpretation Code Description Data Sonia rce(s) Supporting Document(s) Hepatitis C virus Ab [Presence] in Serum or Plasma by Immuno assay Non Reactive [facility] No serological evidence of active infect ion. If recent exposure is suspected, test for HCV RNA. ID Date Data Source [id number] 03/07/2021 05:12:22 AM [facility] Value Range Interpretation Code Description Data Sonia rce(s) Supporting Document(s) Leukocytes [#/volume] in Blood by Automated count 6.7 10*3/uL 4-10 [facility] Erythrocytes [#/volume] in Blood by Automated count 3.83 10*6/uL 4.6- 6.1 L [facility] Hemoglobin [Mass/volume] in Blood 11.6 g/dL 13.5-18 L [facility] Hematocrit [Volume Fraction] of Blood by Automated count 34.2 % 4 1-53 L [facility] Erythrocyte mean corpuscular volume [Entitic volume] by Auto mated count 89.2 fL 80-96 [facility] Erythrocyte mean corpuscular hemoglobin [Entitic mass] by Automated count 30.2 pg 27-33 [facility] Erythrocyte mean corpuscular hemoglobin concentration [Mass/volume] by Automated count 33.9 g/dL 32.0-[facility] width [Ratio] by Automated count 13.4 % 11.5-14.5 [facility] Platelets [#/volume] in Blood by Automated count 149 10*3/uL 150-400 L [facility] ID Date Data Source [id number] 03/07/2021 05:43:01 AM [facility] Value Range Interpretation Code Description Data Sonia rce(s) Supporting Document(s) Bicarbonate [Moles/volume] in Serum 25 mmol/L 22-29 [facility] Chloride [Moles/volume] in Serum or Plasma 102 mmol/L 98-107 [facility] Creatinine [Mass/volume] in Serum or Plasma 0.81 mg/dL 0.70-1.20 [facility] Glucose [Mass/volume] in Serum or Plasma 262 mg/dL 70-140 H [facility] Potassium [Moles/volume] in Serum or Plasma 3.7 mmol/L 3.4-5.1 [facility] Sodium [Moles/volume] in Serum or Plasma 136 mmol/L 136-145 [facility] Urea nitrogen [Mass/volume] in Serum or Plasma 13 mg/dL 8-23 [facility] Anion gap 3 in Serum or Plasma 9 mmol/L 8-15 [facility] Osmolality of Serum or Plasma by calculation 291 mosm/kg 275-300 [facility] Creatinine/Urea nitrogen [Mass Ratio] in Serum or Plasma 16 [facility] Calcium [Mass/volume] in Serum or Plasma 8.3 mg/dL 8.8-10.2 L [facility] Glomerular filtration rate/1.73 sq M pre dicted among non-blacks [Volume Rate/Area] in Serum or Plasma by Creatinine-based formula (MDRD) >6 0 [facility] Glomerular filtration rate/1.73 sq M pre dicted among blacks [Volume Rate/Area] in Serum or Plasma by Creatinine-based formula (MDRD) >60 [facility] ID Date Data Source [id number] 03/06/2021 09:13:43 PM EDT [facility] Name Value Range Interpretation Code Description Data Sonia rce(s) Supporting Document(s) Glucose [Mass/volume] in Capillary blood by Glucometer 265 mg/dL 70- 140 H [facility] ID Date Data Source [id number] 03/06/2021 08:09:58 PM EDT [facility] Name Value Range Interpretation Code Description Data Sonia rce(s) Supporting Document(s) Progress Note [facility] QGWWGb4dTiVWUaJc46/FMJwcMZCff1RfBFolMPo4USbeSFLtS5LrXCT6dO9xRLO4LPqDBrPbMeRuVHHa lbm NwGurPMkYvCBZcDqaQYxYwIYtzJxcwmZStTB3KePR9FACbW43oRWVbANGiQ8BtISA4UVI+Jq8GJCAqnU FgKP7HKmfH5Newp2x6IK0ddP4KZOUJOduPjvOYw91QyLvOb+YqOQEP1fAfJ64qrmiq/fWjRMnyYeWDpK RUgUfK0pYN2260XeYL7l6+JidJRCklxf/mMdGcDOfk yv8Cm1wzlkWx9RyDMcEqmRR25KtSbk3tqrD864GPsgOshbURRvFtn4iUEIX7m/FEFH3mPUxOmoY2iAsG jrDXAOruPR1XMEkiLnXxQPJOlGcGiExAhGQvBd2PHfUv13Bbe90tLlsTjg1SjWFKLiQFCvmJG5CL2q4w Wp8WyX1wJ2mzXVzovRghbBKLgUqVxTN2C4mOS23trn D8rANPZMJxLe9RUkchQR3DlhbISeq35GC9Yol9YY/Ed7hBmLKoJ9Y8OmdtwdXwDnV01WjOUMs2i7/Maricel [file] dGE+DQogICAgICAgICAgICAgICAgICAgICAgICAgICAgICAgICAgICAgICAgICAgICAgICAgICAgICAg ICAgICAgICAgICAgICAgICAgICAgICAgICAgICAgIC AgICAgICAgICAgICAgDQogICAgICAgICAgICAgICAgICAgICAgICAgICAgICAgICAgICAgICAgICAgIC AgICAgICAgICAgICAgICAgICAgICAgICAgICAgICAgICAgICAgICAgICAgICAgICAgICAgICAgDQogIC AgICAgICAgICAgICAgICAgICAgICAgICAgICAgICAg ICAgICAgICAgICAgICAgICAgICAgICAgICAgICAgICAgICAgICAgICAgICAgICAgICAgICAgICAgICAg ICAgICAgDQogICAgICAgICAgICAgICAgICAgICAgICAgICAgICAgICAgICAgICAgICAgICAgICAgICAg ICAgICAgICAgICAgICAgICAgICAgICAgICAgICAgIC AgICAgICAgICAgICAgICAgDQogICAgICAgICAgICAgICAgICAgICAgICAgICAgICAgICAgICAgICAgIC AgICAgICAgICAgICAgICAgICAgICAgICAgICAgICAgICAgICAgICAgICAgICAgICAgICAgICAgICAgDQ ogICAgICAgICAgICAgICAgICAgICAgICAgICAgICAg ICAgICAgICAgICAgICAgICAgICAgICAgICAgICAgICAgICAgICAgICAgICAgICAgICAgICAgICAgICAg ICAgICAgICAgDQogICAgICAgICAgICAgICAgICAgICAgICAgICAgICAgICAgICAgICAgICAgICAgICAg ICAgICAgICAgICAgICAgICAgICAgICAgICAgICAgIC AgICAgICAgICAgICAgICAgICAgDQogICAgICAgICAgICAgICAgICAgICAgICAgICAgICAgICAgICAgIC AgICAgICAgICAgICAgICAgICAgICAgICAgICAgICAgICAgICAgICAgICAgICAgICAgICAgICAgICAgIC AgDQogICAgICAgICAgICAgICAgICAgICAgICAgICAg ICAgICAgICAgICAgICAgICAgICAgICAgICAgICAgICAgICAgICAgICAgICAgICAgICAgICAgICAgICAg ICAgICAgICAgICAgDQogICAgICAgICAgICAgICAgICAgICAgICAgICAgICAgICAgICAgICAgICAgICAg ICAgICAgICAgICAgICAgICAgICAgICAgICAgICAgIC FqCHSxQBMwWFMwHEMkTZLbCZQkZADdWAh1B9bvKCItJJNgPR0kTTo0Kj3+FZeYFwZpFVS3wpUfxY3UJZ 8kt5QqSDyzNXMom5SbFKg2OI4QMJYpSBzyGR0MGLmkog0NOANqPNLhfHAAa2mgSoMoPLC9TWHiYquiTX 9KYXBtO2ntdfBeQVWdHFDPMH6XEePxV1SyrX08MBIB Cj4+FWshueTfGkwHByC8ZUVtq1EuAVo6HN4SJMTqZowvw7TiZMKiVOIOBNhmZX1WTGR4DED4UXOtOy1L LEVmK685ueSvBX8KZt8ECnRkWA4uyn8WQMNsSDQvPnwODuh8LXksLU3MrLOsTOyDpk9yarQoypUGx6Br adKmiCMEfuUscPqeOIZoTRJHUKYeijh7ICrzVv1fSH UoWI2pVM4fJXApJMMaRaHyFZLVUI3ICAEgSGFgkORaGFIxLBNVGT5WUFsfCMG9LWBmvjDfcQHuPLxrCG 9QYXJlbnQgMTQgMCBSDQo+Rs4RSB8sy3GcNTkiEkNzCD5hhk1TDGcFKqBcY7T8sJLnL0Z5HPxnMi0REQ ShCYVuTMZhEYTVBZqkIF8UND4wmgL1QP1UnHSkLLCg XAGvrVFiSUl7N10feYVrJRjfPO3JCYM+Cornelius+Bf5TIWBcIGIeLQJwZmGfLSWMTmCpH8HeI9CEr0OtX5Wk XM06hVkmtoBbWTybPJ9VDG9kLRQdZRAGHY6YzGZdoT9xbhDbKQRrPEUEOjEjW90ulRSpMXKkILSuLDLz Wu5YLEXlD2NmztPicCotlrQoEBGbGMMVPU0ZWQrydw ShnLOyiHkvLD29vKeqKK5ZTe3GGvWcIS2aim4BuLDyTt9LNDHnZu4CVWVxWJPuDCHnNQS5TAXkQbWkFZ ycTVMfAFAjRRK5HWByDOUmDT2OUuKbTBDpPVB2PFtyUFYmLJMnfv6NGQRhVBYsKiR1JBAgXIRvODNhFZ zwJGZlQCYiVAW3WPAxDZXxKZ4JJhUgMLAuKZQ5ZFeu MFOkOSTcxy0PSDUvYQWqYHh2XfBiFBByBFSvGDhfXFZoXWCyKOIhGQDqQOWcAV7PExInAQSwSZOhFOik NQZeVEIdnj6CHRYzEOLmWiQ6HzPyLPWwIOGqHZnrQXKbSKW0HKF8LOLwFXVaXQ7ZPtJvFRBzIDOcRDme ZMUtHZPaeo4QELMxCZAsFUUjGCIpQFNzAFOgTOogPO WfOLY8VDO3SSPxJZZjRU4BLxNzCBYrFCMrQmOjCQAaIOUpko6XJGFdGVNmRmV1BcFoAOOaOEWdWDisSV UiQOB7ApCtNSRgJUOxBM5JUhHnYGukZSIHCsu5ZGncB5r2LJExCq0EB1Stx8FlJTCcUJOTVHidBU7ucq DpGTLzRg7CP0nAIte2QCKpUoHtCHGuBJPfBFu9KDH1 EYLkXmA5FHqpTQJiYy3uLCl9NXP8TKP5ZkV7ZIVtUtT8Qne9GQOlDHSsESEpVpE4YhIbGR9XTf6FAmO7 SJK7gDRvMw9CRgb7Yx5NWRQZE6ISSb== ID Date Data Source [id number] 03/06/2021 05:36:57 PM EDT [facility] Name Value Range Interpretation Code Description Data Sonia rce(s) Supporting Document(s) Glucose [Mass/volume] in Capillary blood by Glucometer 295 mg/dL 70- 140 [facility] ID Date Data Source [id number] 03/06/2021 02:41:00 PM EDT [facility] Name Value Range Interpretation Code Description Data Sonia rce(s) Supporting Document(s) SARS-CoV-2 RNA 2018 nCoV Real-Time RT-PCR: NOT DETECTED [facility] This lab was ordered by [facility] and reported by [facility]. ID Date Data Source [id number] 03/06/2021 06:11:35 PM EDT [facility] Service Cmnt XXX-Imp : NoneRespiratory P CR Panel : PCR ResultsMicroorganism XXX Cult : See Labs Tab for 2019 nCoV RT-PCR resultsHAdV DNA QI BRETT+non-probe : Not DetectedHCoV 229ERNA Nph QI BRETT+non-probe : Not DetectedHCoV HLG6LND Nph QI BRETT+non-probe : Not ZaknfzwfDRnXOJ53 RNA Nph QI BRETT+non-probe : Not KghrxzmoRAnIWN92 RNA Upper resp QI BRETT+probe : Not DetectedhMPV RNA Nph QINAA+non-probe : Not DetectedRV+EV RNA Nph QI BRETT+non-probe : Not DetectedFLUAV RNA Nph QI BRETT+ non-probe : Not DetectedFLUBV RNA Nph QI BRETT+non-probe : Not DetectedHPIV1 RNA NphQINAA+non-probe : Not DetectedHPIV2 RNA Nph QINAA+non-probe : Not DetectedHPVI3 RNA Nph BRETT+non-probe : Not DetectedHPIV4 RNA Nph Q BRETT+non-probe : Not DetectedRSV RNA Nph Q BRETT+non-probe : Not DetectedB pert.PT PrmtNph Q BRETT+non-probe : Not DetectedC pneum DNA Nph Q BRETT+non-probe : Not DetectedM pneum DNA Nph Q BRETT+non-probe : Not DetectedB vvxizAH865 DNA Nph BRETT+non-probe : Not Detected Name Value Range Interpretation Code Description Data Sonia rce(s) Supporting Document(s) ID Date Data Source [id number] 03/06/2021 06:10:46 PM EDT [facility] Name Value Range Interpretation Code Description Data Sonia rce(s) Supporting Document(s) Specimen source [Identifier] of Unspecified specimen [facility] SARS-CoV-2 RNA 2019 nCoV Real-Time RT-PCR: NOT DETECTED [facility] Assay Performed [facility] Patients first test for [facility] Patient employed in healthcare setting [facility] Patient has symptoms related to [facility] When did you start to experience these symptoms [Date and time] [Phen X] [facility] Patient was hospitalized because of this condition [facility] patient was admitted to ICU for [facility] Patient resides in a congregate care setting [facility] status [facility] ID Date Data Source [id number] 03/06/2021 04:18:35 PM EDT [facility] Value Range Interpretation Code Description Data Sonia rce(s) Supporting Document(s) Hemoglobin A1c/Hemoglobin.total in Blood by HPLC 9.3 % 4.0-6.0 H [facility] Glucose mean value [Mass/volume] in Blood Estimated fr om glycated hemoglobin 220 mg/dL <126 H [facility] ID Date Data Source [id number] 03/06/2021 03:32:56 PM EDT [facility] Name Value Range Interpretation Code Description Data Sonia rce(s) Supporting Document(s) Bicarbonate [Moles/volume] in Serum 22 mmol/L 22-29 [facility] Chloride [Moles/volume] in Serum or Plasma 102 mmol/L 98-107 [facility] Creatinine [Mass/volume] in Serum or Plasma 0.81 mg/dL 0.70-1.20 [facility] Glucose [Mass/volume] in Serum or Plasma 264 mg/dL 70-140 H [facility] Potassium [Moles/volume] in Serum or Plasma 3.9 mmol/L 3.4-5.1 [facility] Sodium [Moles/volume] in Serum or Plasma 137 mmol/L 136-145 [facility] Urea nitrogen [Mass/volume] in Serum or Plasma 21 mg/dL 8-23 [facility] Anion gap 3 in Serum or Plasma 13 mmol/L 8-15 [facility] Osmolality of Serum or Plasma by calculation 296 mosm/kg 275-300 [facility] Creatinine/Urea nitrogen [Mass Ratio] in Serum or Plasma 26 [facility] Calcium [Mass/volume] in Serum or Plasma 8.4 mg/dL 8.8-10.2 L [facility] Glomerular filtration rate/1.73 sq M pre dicted among non-blacks [Volume Rate/Area] in Serum or Plasma by Creatinine-based formula (MDRD) >6 0 [facility] Glomerular filtration rate/1.73 sq M pre dicted among blacks [Volume Rate/Area] in Serum or Plasma by Creatinine-based formula (MDRD) >60 [facility] ID Date Data Source [id number] 03/06/2021 01:50:08 PM [facility] Value Range Interpretation Code Description Data Sonia rce(s) Supporting Document(s) Glucose [Mass/volume] in Capillary blood by Glucometer 279 mg/dL 70- 140 H [facility] ID Date Data Source [id number] 03/06[facility]21 [facility]19[facility] Interpretation Code Description Data Sonia rce(s) Supporting Document(s) Glucose [Mass/volume] in Capillary blood by Glucometer 237 mg/dL 70- 140 H [facility] ID Date Data Source [id number] 03/06/2021 07:32:04 AM EDT [facility] Name Value Range Interpretation Code Description Data Sonia rce(s) Supporting Document(s) Progress Note [facility] JFUGFk3ePuFXUqHw96/BEVrkFAYwt0BtNPvxXDc1EJttVMByQ4LhNAO9jT8kASJ6LDkHAfYsCdNbYEXb lbm [file] DfYI3TQOc= ID Date Data Source [id number] 03/06/2021 07:30:40 AM EDT [facility] Name Value Range Interpretation Code Description Data Sonia rce(s) Supporting Document(s) Glucose [Mass/volume] in Capillary blood by Glucometer 265 mg/dL 70- 140 H [facility] ID Date Data Source [id number] 03/06/2021 07:13:02 AM EDT [facility] Name Value Range Interpretation Code Description Data Sonia rce(s) Supporting Document(s) History and Physical [facility] UOTEKn7zMfVTBjIv49/QBNjcRSOei8VoKCfmBRi5MIeyRLEqB5JfBBO5bD9zCEI9OOcBWfTrIfBcBOEn lbm [file] AgICAgICAgICAgICAgICAgICAgICAgICAgICAgICAgICAgICAgICAgICAgICAgICAgICAgICAgICAgIC AgICAgICAgICAgICAgICAgICAgICAgICAgICAgICAgICAgDQogICAgICAgICAgICAgICAgICAgICAgIC AgICAgICAgICAgICAgICAgICAgICAgICAgICAgICAg ICAgICAgICAgICAgICAgICAgICAgICAgICAgICAgICAgICAgICAgICAgICAgDQogICAgICAgICAgICAg ICAgICAgICAgICAgICAgICAgICAgICAgICAgICAgICAgICAgICAgICAgICAgICAgICAgICAgICAgICAg ICAgICAgICAgICAgICAgICAgICAgICAgICAgDQogIC AgICAgICAgICAgICAgICAgICAgICAgICAgICAgICAgICAgICAgICAgICAgICAgICAgICAgICAgICAgIC AgICAgICAgICAgICAgICAgICAgICAgICAgICAgICAgICAgICAgDQogICAgICAgICAgICAgICAgICAgIC AgICAgICAgICAgICAgICAgICAgICAgICAgICAgICAg ICAgICAgICAgICAgICAgICAgICAgICAgICAgICAgICAgICAgICAgICAgICAgICAgDQogICAgICAgICAg ICAgICAgICAgICAgICAgICAgICAgICAgICAgICAgICAgICAgICAgICAgICAgICAgICAgICAgICAgICAg ICAgICAgICAgICAgICAgICAgICAgICAgICAgICAgDQ ogICAgICAgICAgICAgICAgICAgICAgICAgICAgICAgICAgICAgICAgICAgICAgICAgICAgICAgICAgIC AgICAgICAgICAgICAgICAgICAgICAgICAgICAgICAgICAgICAgICAgDQogICAgICAgICAgICAgICAgIC AgICAgICAgICAgICAgICAgICAgICAgICAgICAgICAg ICAgICAgICAgICAgICAgICAgICAgICAgICAgICAgICAgICAgICAgICAgICAgICAgICAgDQogICAgICAg ICAgICAgICAgICAgICAgICAgICAgICAgICAgICAgICAgICAgICAgICAgICAgICAgICAgICAgICAgICAg ICAgICAgICAgICAgICAgICAgICAgICAgICAgICAgIC AgDQogICAgICAgICAgICAgICAgICAgICAgICAgICAgICAgICAgICAgICAgICAgICAgICAgICAgICAgIC FbDMRaOGOfOWIoIYJcPXTkNSIuGSPyFLBaLSBhQDHbVFCqSYBhIVPoMCRfSVa6J6agWZVnVDHqDX0xSY d3Jz8+GTpLHpTdKRN7dhRzvH2ENW1lj2ItWTkcCAOt k7CvUOt6PH0FBKPfIOxeXM2YVSfity2AMHMbWRXlyBIId2mgIyRxYAL1NXXgKpqbRU5XVUEoZ7eeqzSl JRQjNHRRPGdhKTUWBHviRCCDZG9YRsXdR4RvdO82WEZULt0+IZijqqXuJqvIVfA7IKJsy1NaNVo6UR9W OWIcGnymj0MfXzldBZZKLFgbYR1VXDG3PUI2TCZoSf 0SHATkA092zhWzSP1LPw1CSfMvDP4wxy2GAwnbBPXuFapOYth4ONjdBU0LdCGjYQcXAmBxKtnjM8RckG OdXZEYWT99MRftJX2qzIGwNTWWKUQzwVZ0WuEyQjEqOhEtHCl4MCVrCT9wIHelKD4ZYXN4ZGgrWHVdPY VfA2hOBvBeBSKnMcGgpCraCW7HNmWnO2KzoqUvnLVq NiAwIFINCj4+LNfvviImLbaAPpO5WUUln5ZlGYl1PZ8WKRXxKKvvWO5VVXFemE3pFHbqRK3IHsWfNAMo OXWTVnNtN56pcNImMTp3B0MfPdVdVKVgBwvwZRTuKXupJeCuZNPzSdVzGPhwGJ3+ID4+BNgqOP3DUDhi vvLbNMXpAq1IQSIuYRWySW3oNZJdRUNdH8X6bVegHM GCThOnG1jzyzrjBU7kNRIvM083xXaatuEuYFK2KOClHw2PFIEsVGK0ZEXlhWFqLtVtVLQNOQvxXQ9RpW KhXYV5aU4xBFrgNDJzZCWwH0uQYrXjfNpuGZ88mLglpyAjlWYnGVq+Zj8NFK2ad6GpSEu3spTwHBpdKB G2BPrrTHOrNVSrEGCoNXO0MJK4CULMTgRpCBSfGCOe TCihABOxRUFwux1SICJmJUT7ZCf4TVEnRJBdTIDwMYxqQUTaJBTmFcG1FFCdUKYoIQ0DAtFbDQCtLNSv MKxdJZZfCFReok1VZHZdIITqQbL3YwPzUYQuORZdYFngEHRrLGNwCJnuSIUvKMSzIZ2HVrWzJIFkRST3 LHfaTYXiAJRghm9HNRZnZHGxQxAsSNEhJRUcQIUdCS svHJAbMAT3JDg1PIMiMGHwUB7VYiVtPOWnPGgvRIGlCFFvBGRhuz2WNHGaGPQaIYB1KnWqAHHaKNStDF lxSXLcLAWeYBS0ZGVeSTYsEF6NAmSyNNMmHTG6HwIrSPKwCOUikv3BRDKrOIYlBKK5PRQzRXUrIABmSE hnTXSuAQWhAMlwNIQpPPRhQH3XTbUbSRAzLWJwPeZd GBUcIAUisb7ZZLBpUKMvFKS8ENDgABXgRTTfJVtnWDAjHQH9JhN5HDWaDJLjGV0BKgTtLGUoEea1ElGr AURkIPLbww4ZLQTeYZBaOVYjTrFaWJSgQBMtNSqbQFJjDGM4QkUjOLJpXGCvRY6LMqHqQDIzSEX7ARMv WQDbZTEajd2XNBEfKQN0ICf6JSAeMEOrRJZbCHrbTV VdZFNoTXIqGAFbJFEmAS5FBtTfATPvQRGnJnlbCTRqHRCpjg2WPHCqRAE9YbybILDxDCDyIDIqKUyiAS SyQUJjJASvBKSbRZNrJX1EFsNvJFShIRWaSNEqJEFqVPEhme7PoMHpcEdkbe8IZRcYGw3CzLgjOZW9HA lcQw7arVFbCODuPHABCi8FuxWcTYCsIMDOCHlqHUTt LDO3OPJkOnGrM6PtNbi6GQF4OEFmPKZ7YITaTNuvRmX3CqR7Kdo9XTDsTDN5YDWmLQToTCp8MvM9Bibs PpF0JDYjULc+QO1nCZu+Hv2Af8EsgpZ4qsWgONg1AgZ2TG4SDWKIY4PFKa== ID Date Data Source [id number] 03/06/2021 07:06:47 AM EDT [facility] Name Value Range Interpretation Code Description Data Sonia rce(s) Supporting Document(s) Progress Note [facility] CQCTHf2gEuNXQxCg33/MUGaaVMMhe3WjKRiqWId7XIkrYQKgW8XrSQQ3oF2gACJ5KAbRJxRaIsLcOAMq lbm [file] ICAgICAgICAgICAgICAgICAgICAgICAgICAgICAgIC AgICAgICAgICAgICAgICAgICAgICAgICAgICAgICAgICAgICAgICAgICAgICAgICAgICAgICAgICAgIC ZnAI5TSLIbGCLpXSUgPAIhHXYuGGJuXWOqOTUwLWEpLLOmSSWgSAGxJLJoPACjAVUrCPYkQJUrKGRgBE AgICAgICAgICAgICAgICAgICAgICAgICAgICAgICAg NDApNFUcKASzHKDbCE9GTVYxSXNmGWDcWEEnWJVaRUOsKOUsQVFaQWJlXZNnQQGkFSYrPHEsTUZiBSTb IMMxDKXrWHQePJXySRXgWQVwUPPjXOUjCRYuNEWxLFUiRPRtRMKrMZQhNBLdVDAoJNMcHXOdJT1OYVVr ICAgICAgICAgICAgICAgICAgICAgICAgICAgICAgIC AgICAgICAgICAgICAgICAgICAgICAgICAgICAgICAgICAgICAgICAgICAgICAgICAgICAgICAgICAgIC XrCUIoWY0RQTDeRGTaMWQkUUAvHVLzHMXcAVRiIUFcTTToAKZnXAYwABTkLEVgCIVnIPHiULHlTZPkYX AgICAgICAgICAgICAgICAgICAgICAgICAgICAgICAg BLUwFCWlYSQbMPYeGJRkLG8NAICqYFIbPLDhSNStFESjDGOlRHHnRSVxYVEeSOMpKNGhCXJiJDSdMHEp ERVbYEGvLBEwTPYwWGTqBQTcTDMjJDXjHWQrARQwROUrJUYbPFQtUMYoZYJpZCAjGNTqNJHmSRBnPF4Q ICAgICAgICAgICAgICAgICAgICAgICAgICAgICAgIC AgICAgICAgICAgICAgICAgICAgICAgICAgICAgICAgICAgICAgICAgICAgICAgICAgICAgICAgICAgIC HyFILdQNYkDP8RXZSrHNEzXPWoWCFiLCGfRFNcKDAwIBVoEBCdWAAhCNOsNQZxXQGrUKMgIXVvOWFsMH AgICAgICAgICAgICAgICAgICAgICAgICAgICAgICAg OLWsMXMkBDRoMQPeQBSvASSxIZ2EJCIgUBCuBCGeHCByGFXxNRDqRCRmSDHmBEOzYCMhYFHrLAGmYJRd ICAgICAgICAgICAgICAgICAgICAgICAgICAgICAgICAgICAgICAgICAgICAgICAgICAgICAgICAgICAg PX7KHS14iSQdk4C2KUSxPY1hvfv/Wo9EZVvqafXwhT CvAH5HAhLpCD0efz1BEzLaXF1oas3ASTiEGuKrZ7A8dHHuBJNvHKYHGsOtY68jIYtlRk47TTzkDZVfAd KjYVa6Wy6NQtFpD8zlJXWpAvO9EOLpKsSxYJijFV5Zc9GgeSQmSBk+Ye4CEU6yn8GdLYwmUCSrYY7xtk 9LOMeRGzNpO1KrpuI0NRB2GRQiCg6DTSXlUZTpgMQo ADIlJEVXTnWjH0GuiA28FYVSUb7+KAevorDoZmkQDgQ2MJMvq5YqVDm8YR1CMFZcPXz9mXYjMOOiY9So r9ZaMu14VKHhLefrZHOhjBSlZBIzHd3sAWvgOq3eQVCtSN2hCI1fRARzNKT8BtC2EEHJUR3WZRVeTJBd kCSeOSChOZKZVL9ANHfpAFO4RRLomlFmzVUdUJxeBE 9QYXJlbnQgMTQgMCBSDQo+Ut0EUR0ix4UfBFmxIcFoDB3vhl6AMYcZEpIzV1O3kXDkZ3G7GRicDq6UPE AwRYEcRSMzVNEUBQmiBJ4XIP2oyqP1AX1HfQUtLKOaABVjvBIlDSy1U13djJQgMMkmPK3ZAGT+Cornelius+Pg 3WZTWiQUCaWNJnBrMjAOHEErDhY4MsI9YSv1ZtC0Sk WM48kJcovwRkSIqwJZ5CME7rUINdHBMPMC3GkXTewG2iouEgNSNdUISUMvQnJ43urWLzORCrHUGkZQIa Op4ZADSoR9JxdsRqbMqnphEqSQEePPMQUO1DGRdurvUvyWHkzJruXX26wCbaMN5CYe2XAsYvAI2ctp2R hIMeOs3BMVYbYn8ADQPwILCeMJMjMND4PLBdVgMoEU hqLTVxCRNeKLK2XKNiDBBdYT3QUiQkSLNjPTO4LLSuJIUdABLrxt1CLIGzPQZxSaPiMELuRIXiFYMnGW bnWDHaKUDmZWG6SQAbWNYnRD2PYuMxVLBzWFO3ZSVrPXMfGJGyaa7CDZNxEECeRUo1QLCyVNNrZTBaKH ufXIGrVOEvHvO0HJUzLTOwWY4HXeCiEOOnJAX0HJOp VHKzRZKuvo0ICPVcUQFoVfScXZUhRIFoYQNkJIdgCQPgUUC6WQkbRHFxQRAoDV5ODqLhZQOkUPAuCUMn SBZoNRNwxi8LSZLvIIPfQFI0TEJaANMcDURpLLluKGPjHIX5PZl7ZSDgAGAxXC4NZrOoTJVtVLAjDlZy MCOjWSGxmy1KEHEnLRWyLiM8RZTxEMVwEXShFPvvLB DgXJS1MIGkPVSsXXSgBH0TBrRaWCtzAMUTTre1QLmnV3l3HJUuFz7YD8Lyq2BiREUfPMLUVRpoUP6lwf LwYEGpEu8DD8cUWfpvXkD3TdN2OdapOmP5Cia4SbR4TyU7CmluJPGdAoG7Yd3aFXS8HdcjDpr8SVRjCD U0NrJyFpsuEuWoKiR3OQD7HEAcLoMgKH4XEq4UCkW9UUC7zWSxPl3JHer3Jg7LJHLFF7CITl== ID Date Data Source [id number] 03/06/2021 06:51:08 AM EDT [facility] Name Value Range Interpretation Code Description Data Sonia rce(s) Supporting Document(s) Glucose [Mass/volume] in Capillary blood by Glucometer 279 mg/dL 70- 140 [facility] ID Date Data Source [id number] 03/02/2021 08:02:00 AM EDT [facility] Name Value Range Interpretation Code Description Data Sonia rce(s) Supporting Document(s) COVID-19 RT-PCR [employer] [facility] Not Detected Not Detected [facility] A not detected (negative) test result fo r this test means that SARS-CoV-2 RNA was not present in the specimen above the limit ofdetection. Laboratory test results should always be considered in thecontext of clinical observations and epidemiological data in making afinal diagnosis and patient management decisions. Results will bereported to government agencies as required.This test has received Emergency Use Authorization (EUA). We will continue to follow federal and state requirements for COVID-19 reporting. This test has been authorized only for the detection of RNAfrom SARS-CoV-2 virus and diagnosis of SARS-CoV-2 virus infection, notfor any other viruses or pathogens. This test is only authorized for the duration of the declaration that circumstances exist justifying the authorization of the emergency use of in vitro diagnostic tests for detection of SARS-CoV-2 virus and/or diagnosis of SARS-CoV-2 virusinfection under section 564(b)(1) of the Act, 21 U.S.C. section 360bbb-3(b)(1), unless the authorization is terminated or revoked sooner. We will continue to follow federal and state requirements for both notification of results and any confirmatory testing that is required by another agency. This test was developed and its performance characteristics determined by [facility] and verified at [facility]. It has not been cleared or approved by the U.S. Food and Drug Administration for diagnostic use. This test has been authorized by FDA under an EUA for use by authorized laboratories. Results should be used in conjunction with clinical findings, and should not form the sole basis for a diagnosis or treatment decision. Methods: SARS-CoV-2 Multiplex RT-PCR Assay ID Date Data Source [id number] 03/01/2021 12:15:00 PM EDT [facility] Name Value Range Interpretation Code Description Data Sonia rce(s) Supporting Document(s) SARS-CoV-2 (COVID-19) N gene [Presence] in Respiratory specimen by BRETT with probe detection NEGATIVE [facility] This lab was ordered by Nathaniel Mcgovern and reported by [facility]. ID Date Data Source [id number] 02/21/2021 12:41:00 PM EDT [facility] Exam Number: [id number] OF EXAMINATIO N: 02/21/2021 12:09 EDTHISTORY: OsteoarthritisTECHNIQUE: 2 views of the left hip were obtained.FINDINGS:Bones are well-mineralized and properly aligned. Moderateosteoarthritis of the hip joint is noted. There is no fracture ordislocation.IMPRESSION:Moderate osteoarthritis.Electronically signed in [id number] by: Yanely Steward M.D. 112:30 EDT Reported By: Janeth STEWARD M.D. Signed By: eRyes STEWARD M.D. Name Value Range Interpretation Code Description Data Sonia rce(s) Supporting Document(s) ID Date Data Source [id number] 10/31/2020 02:55:16 PM [facility] Name Value Range Interpretation Code Description Data [facility] rce(s) Supporting Document(s) Progress Note [facility] YGRHSb8lYoKXYcSb42/TYPpjGGVgp5CdXOiiLXi7SNhgDKHmU4DaPUD6uW2sVRQ3KMyWLhHcGlAqFTF6 [facility] [file] ICAgICAgICAgICAgICAgICAgICAgICAgICAgICAgICAgICAgICAgICAgICAgICAgICAgICAgICAgICAg OCRjUMRoHOAuBZAsCRPoGEHjKFUtUM1DYYJgALQmPH AgICAgICAgICAgICAgICAgICAgICAgICAgICAgICAgICAgICAgICAgICAgICAgICAgICAgICAgICAgIC NcWSNzZSLtGKQuUCDaVDRqJATzCXOnBKZaMBGyPTUwTN3HPXFfAOJsJRHuNQUfZLHaHKPvBNSmVSUwKU AgICAgICAgICAgICAgICAgICAgICAgICAgICAgICAg TODiMYWdCBRvODVbJYXuZBYpPCAsDXBuUHWjXGLbKNVwIEJlMFPpRWWvMD6JQAAtJDTvEXIbBFNhISNp ICAgICAgICAgICAgICAgICAgICAgICAgICAgICAgICAgICAgICAgICAgICAgICAgICAgICAgICAgICAg NXFdLOSmFUXhKCBrKECcUPGyKHCpDTPpFQ6OXLEwJY AgICAgICAgICAgICAgICAgICAgICAgICAgICAgICAgICAgICAgICAgICAgICAgICAgICAgICAgICAgIC IePVUsQYSxPXEvWGKxQPHlZQWhGFWeRMNsCKKmAIZrQLYfCT7SMLHbNXDcMONqWHHeNRXmSWMxICLsMI AgICAgICAgICAgICAgICAgICAgICAgICAgICAgICAg WAYpSBQoVNXcCQUuNTEkZAYoLKXrMDXfZSToQNFbVFJqCRByDZXpNJHvNSXyLB7UJXTpQPVeHEAlHESf ICAgICAgICAgICAgICAgICAgICAgICAgICAgICAgICAgICAgICAgICAgICAgICAgICAgICAgICAgICAg KUXyEACdQUTqSZJyGUGuIHLdUISqJSFeYLKjZL9LHF AgICAgICAgICAgICAgICAgICAgICAgICAgICAgICAgICAgICAgICAgICAgICAgICAgICAgICAgICAgIC PdEOEbCCHpORIwPNKtKNDxMDWdUEObXTGmEGOuQCZfFQJiMYOyTM9FSUFiSKYtQMVbHPEgFRCyAASiDN AgICAgICAgICAgICAgICAgICAgICAgICAgICAgICAg LVNvTQYiZBHzTLDcIEUvAMNzGDFuBCQsIVPsOEUnCPFkUEKgVZWaYOQeVIIqEXKbIS2DWXGvMEYiOJZs ICAgICAgICAgICAgICAgICAgICAgICAgICAgICAgICAgICAgICAgICAgICAgICAgICAgICAgICAgICAg ICAgICAgICAgICAgICAgICAgICAgICAgICAgICAgIA 0IHQ03pMQit6S7NTAzJX6eqls/Jh0EGQmngaAwlGKlZP1REjDzXK4qia2INoEqTH4sra5ZPEqIEgYaT6 C8bACtBUEfWMBOXjJgR07jBZmmZv00NBmuSMHhHfXxCXn3Bv8AOoGrR0ebUGCuGqJ2EMKlIcB5VUUdVw P8GDOdZgMmGASaUSYjHZ6XYYAmZ512pnGjVX7HFa6D YcJxIT2aej6VBhtwVKGkNceFLqo8HNyvAB5VnOPzyRNzOLLrTGHXExXmQ6gwo9OhQyksBENQBPsoKN3C k4LsiIBxWZi+Jv6NTE9js6FxUEwpKOSjKJ2lhh4DZPfPUoZpG9KkkXubFBMem6foIFGmJZ4arSOuYRR8 HLHvKR3is48sF6Vfa85yEIWPVXYigNGlPw8wHN8iIE YiWYS0YvTjTAXDSF3WUKBgQIYqhCQvKGNvFKIJAL3AMMebDGM5QKRvewVzeYUnIErsKG7JRJSqagAuAd ggMCBSDQo+Bc4VID5pn2YjNLahBRPjAG8efk5WARdTVkDqE3B0lNDnJ3I2HVzmHo5TRQOaMSTwGtEvNU KTCOnySA3FAR2rceM2PX3WoKMmZXFzEDWmoGXnOQe7 P24wxTYbRSwyTL2CRKY+Cornelius+Uv9DVCRbSPUoJAQiMvRcHJIFMwAyK9ToZ8INz9ApI6ZhLJ54zGlsukDe UOacVH3VVV0tTEAgZHMDBT0OrCEiqD2xqbFnXYPeIBZAHsGuR86dlZPqKKZrUDR2GMPpKp8SMRDpF1Uk rcHppJqneeFeZIDnPQXYSA4XLEmnnbTljOYwuFrwCY 33qPzbHN1RZn2AVnUwWY8ynr0YcAScHt8ADBEmZH2XXYQkUDPpRKYuFBL3FSOgDeLbTVjiLTUwEJErUU B1VGNsSGRpBX4RCuIoTEIxBDz6NOukGBVzUHYhrs1VEKMjIVL0MWX2PgMiGCYzEDTdTYvqFKZhQNScFM S3ROYcAMGgQA5LVxXlSGNpTSZ5OhBwJWRvMYEvzl8J NUPwLHXxAJH5DwAcLLUbAAGvOJweYJSwNPC3MVXsHCVkSWAnZL7TOdHeKUMjYFBhYVTrIUMdFHUywr8U BMXnNEUyBHDhXDVlAEThVTDyXVxsJLKjMBI7QiJ4NPHvKGOuFU0UOqHmJVWfPRW9NpXaCDMiZOAckf5P MUDnHWGnCjOsFmNfTNNhPQJoBDfjYDXbIALxZQd7RX YgAMOcAF8FNqYrBSFmQRJdAJXdNKTwMFOetk2LGMPcKHDeWmZ6BhUdCRYmGTChBTfbTGJhPVM0SRH3HK HcTTUyPE4AMwDpCOClSMK6WkkdCJRaWFQqwd6TVAYhEUMhDKclUeYnEJJgEPHeSDenTBQbAZR4ZsB3NN EbUTFmTG7DNbOsWYOhJZBmRbTzDSGiJMOhxu9BCVFg TTH4SdG0KnKfUTXaRTEfBCdvHCJlXVL8XrphQYRjWJOvNH6GJkHeJLNbTRu2AjFcAISoZDFzav3FVCGx KKU9TYM8GTQiFSMmKPYnOKyoVZCgFYQ0PPB1MXXkUZUtPO5MRnPfCUAqSTa4UwOoHSEjBQIhso1XFILp JCZ7NHP6QhIzYPQkPGGePOwiAIAeMRIcQhJrEVChPY HhZC9RRcTfIALoAHO2VDJeWOZfFTCabf5XKFSxBZG2CTamPLGtKWRmWIPbIYk7iqBblEOwSEk5OA7UX2 PtnaCpJrHELn9Qg811TRCdOBCgTh6EY5yyCq9jVCUjFHHGFy8WTRw2DjIlAPWrDWQ4FVSsSCJpCSJnUI zdRRHxBlX8LqUdBKy+IVfjAXI7OHT6OkFqAnZuAPMq NcX6DDXbJwSmHyDfFqQzQn2pHUDWZk8+VXirwHAzrWmvIDLMSxJgTHn7SUncUAKLNx8N ID Date Data Source [id number] 10/25/2020 06:37:45 PM [facility] XR ANKLE 2 VIEWS [id number] RESULTInterp reted by:SHAWNA Jordanlinical history: Right ankle arthritisViews: 3 views right ankle and 3 views right footIndication: Check right foot and ankleFindings: The patient has 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 No acute trauma to the calcaneus or midfoot bones are noted. TMT joints appear aligned with some degenerative changes noted. No acute bony trauma to the metatarsals or phalanges is noted however there are some lesser toe deformity. MTP joints and IP joints are relatively well-preserved.Impression: Severe arthritic change right ankle with milder degenerative changes and deformity in the right foot as detailed aboveThis document has been electronically signed by Pierre Price MD on 10/25/2020 6:35 PM Name Value Range Interpretation Code Description Data Sonia rce(s) Supporting Document(s) ID Date Data Source [id number] 10/25/2020 06:37:15 PM EST [facility] XR FOOT 3 OR MORE VIEWS [id number] RESUL TInterpreted by:SHAWNA Jordanlinical history: Right ankle arthritisViews: 3 views right ankle and 3 views right footIndication: Check right foot and ankleFindings: The patient has 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 No acute trauma to the calcaneus or midfoot bones are noted. TMT joints appear aligned with some degenerative changes noted. No acute bony trauma to the metatarsals or phalanges is noted however there are some lesser toe deformity. MTP joints and IP joints are relatively well-preserved.Impression: Severe arthritic change right ankle with milder degenerative changes and deformity in the right foot as detailed aboveThis document has been electronically signed by Pierre Price MD on 10/25/2020 6:35 PM Name Value Range Interpretation Code Description Data Sonia rce(s) Supporting Document(s) Procedure Social History Code Duration Value Status Description Data Source(s ) Alcohol intake 06/01/2021 12:00:00 AM EDT Current drinker of al cohol (finding) completed Current drinker of alcohol (finding) [facility] Tobacco use and exposure 06/01/2021 12:00:00 AM EDT Never used co mpleted Never used [facility] Smoking 06/01/2021 12:00:00 AM EDT Never smoker completed Never s orker [facility] Alcohol intake 03/21/2021 12:00:00 AM EDT Current drinker of al cohol (finding) completed Current drinker of alcohol (finding) [facility] Alcohol intake 03/06/2021 12:00:00 AM EDT Current drinker of al cohol (finding) completed Current drinker of alcohol (finding) [facility] Alcohol intake 10/25/2020 12:00:00 AM EST Current drinker of al cohol (finding) completed Current drinker of alcohol (finding) [facility] Smoking 10/12/2020 12:00:00 AM EST Patient has never smoked co mpleted Patient has never smoked [facility] ([facility] Vital Signs ID Date Data Source UNK Name Value Range Interpretation Code Description Data Source(s) Systolic blood pressure 119 mm[Hg] 119 mm[Hg] [facility] ([facility]) Diastolic blood pressure 81 mm[Hg] 81 mm[Hg] [facility] ([facility]) Body temperature 98.0 [degF] 98.0 [degF] [facility] ([facility]) Body height 69 [in_i] 69 [in_i] [facility] ([facility]) 5'9" Body weight 235.38 [lb_av] 235.38 [lb_av] [facility] T ([facility]) Body mass index (BMI) [Ratio] 34.8 kg/m2 34.8 k g/m2 [facility] ([facility]) [place] body weight 160 [lb_av] 160 [lb_av] [facility] Body weight 106.766 kg 106.766 kg [facility] ([facility]) Body surface area Derived from formula 2.21 m2 2.21 m2 [facility] ([facility]) Systolic blood pressure 172 mm[Hg] 172 mm[Hg] [facility] Diastolic blood pressure 98 mm[Hg] 98 mm[Hg] [facility] Systolic blood pressure 117 mm[Hg] 117 mm[Hg] [facility] manual Diastolic blood pressure 80 mm[Hg] 80 mm[Hg] [facility] manual Heart rate 66 /min 66 /min [facility] Body temperature 96.9 [degF] 96.9 [degF] [facility] Respiratory rate 20 /min 20 /min [facility] ( [facility] Body height 69.5 [in_i] 69.5 [in_i] [facility] 5'9.50" Body weight 250.25 [lb_av] 250.25 [lb_av] [facility] ([facility] Oxygen saturation in Arterial blood by Pulse oximetry 93 % 93 % [facility] [place] body weight 160 [lb_av] 160 [lb_av] [facility] ([facility] Body mass index (BMI) [Ratio] 36.4 kg/m2 36.4 k g/m2 [facility] ID Date Data Source [id number] 03/23/2021 07:47:54 AM [facility] Name Value Range Interpretation Code Description Data Source(s) WEIGHT RECORDED 246.2 lb 246.2 lb [facility] Body height Measured 69 in 69 in [facility] WEIGHT RECORDED 250 lb 250 lb [facility] Body height Measured 69 in 69 in [facility] ID Date Data Source [id number] 02/26/2021 11:00:17 AM [facility] Name Value Range Interpretation Code Description Data Source(s) WEIGHT RECORDED 250 lb 250 lb [facility] Body height Measured 69 in 69 in [facility] Patient Treatment Plan of Care Planned Activity Planned Date Details Description Data Source (s) Misc. Devices (DURABLE MEDICAL EQUIPMENT SEE SIG) XX M ISC 04/18/2021 12:00:00 AM [facility] Aspirin 325 MG Delayed Release Oral Tablet 03/21/2021 12:00:00 AM [facility] Simvastatin 40 MG Oral Tablet 03/20/2021 12:00:00 AM [facility] Insulin Glargine 100 UNT/ML Injectable Solution 03/10/2021 12:00:00 AM [facility] insulin lispro 100 UNIT/ML SC injection HIGH DOSE EATI NG INSULIN patients 03/09/2021 12:00:00 AM [facility] Sertraline 100 MG Oral Tablet [Zoloft] 03/09/2021 12:00:00 AM [facility] Metformin hydrochloride 1000 MG Oral Tablet 03/09/2021 12:00:00 AM [facility] Aspirin 325 MG Delayed Release Oral Tablet 03/09/2021 12:00:00 AM [facility] Oxycodone Hydrochloride 5 MG Oral Tablet 03/09/2021 12:00:00 AM [facility] Docusate Sodium 100 MG Oral Capsule 03/09/2021 12:00:00 AM [facility] Acetaminophen 325 MG Oral Tablet 03/09/2021 12:00:00 AM [facility] Oxycodone Hydrochloride 5 MG Oral Tablet 03/06/2021 01:30:39 PM [facility] Oxycodone Hydrochloride 5 MG Oral Tablet 03/06/2021 01:30:39 PM [facility] Diazepam 5 MG Oral Tablet 03/06/2021 01:30:39 PM [facility] Bisacodyl 10 MG Rectal Suppository 03/06/2021 01:30:39 PM [facility] ondansetron (ZOFRAN) injection 4 mg 03/06/2021 01:30:39 PM [facility] dextrose 50 % IV solution 25 mL 03/06/2021 01:30:33 PM [facility] Glucagon 1 MG Injection 03/06/2021 01:30:33 PM [facility] Glucose 0.417 MG/MG Oral Gel 03/06/2021 01:30:33 PM [facility] 24 HR Metformin hydrochloride 500 MG Extended Release Oral Tablet 08/06/2016 12:00:00 AM [facility] Sertraline 100 MG Oral Tablet [Zoloft] 07/02/2016 12:00:00 AM [facility] Pravastatin Sodium 40 MG Oral Tablet 05/31/2016 12:00:00 AM [facility] Diclofenac Sodium 75 MG Delayed Release Oral Tablet 05/31/20 12:00:00 AM [facility] celecoxib 200 MG Oral Capsule [facility] Aspirin 81 MG Delayed Release Oral Tablet [facility]
--- OUTSIDE RECORDS SUMMARY | 2021-08-09 07:11 | CCD | Continuity of Care Document ---
Author Author Erik PETERSEN [place] Organization Unknown Address [address] [place] [address] Phone [phone] Care Team Providers Care Automotive [employer] Counter Assistant Name Role Phone Enoc Hawley M.D. AUTM [phone] Problems Active Problems Provider Date Essential hypertension [...] Chewtabs 1 qd Unknown Vitamin D (Ergocalciferol) [id number] Capsules 1 Tab 2 Times A Month [...] lb BMI (Body Mass Index) 34.8 kg/m2 [place] Body Weight 160 lb Weight 106.766 kg BSA (Body Surface Area) 2.21 m2 02/24/2019 10:32am BP Systolic 144 mmHg BP Diastolic 80 mmHg Height 69 inches 5'9" Weight 248.38 lb BMI (Body Mass Index) 36.7 kg/m2 [place] Body Weight 160 lb Weight 112.663 kg BSA (Body Surface Area) 2.27 m2 Results Description No Information Available Procedures Date Code Description Status 06/11/2021 35304 Office/Outpatient Established Lo w MDM 20-29 Min Completed Medical Devices Description No Information Available Encounters Type Date Location Provider Dx Diagnosis Office Visit 06/11/2021 10:30a [facility] JAG Tariq Z12.11 Encounter for screening for malignant ne oplasm of colon Z86.010 Personal history of colonic polyps K21.9 Gastro-esophageal reflux dis ease without esophagitis Assessments Date Code Description Provider 06/11/2021 Z12.11 Encounter for screening for boby gnant neoplasm of colon JAG Ordonez 06/11/2021 Z86.010 Personal history of colonic poly ps JAG Ordonez 06/11/2021 K21.9 Gastro-esophageal reflux disease without esophagitis JAG Ordonez Plan of Treatment Future Appointment(s):* 08/23/2021 10:45 am - JAG Ordonez at [facility] * 08/09/2021 9:45 am - Kendrick Moore JR, MD at [facility] 06/11/2021 - JAG Ordonez* Z12.11 Encounter for screening for malignant neoplasm of colon * Z86.010 Personal history of colonic polyps * K21.9 Gastro-esophageal reflux disease without esophagitis Functional Status Description No Information Available Mental Status Description No Information Available Referrals Refer to Dr Reason for Referral Status Appt Date Kendrick Moore JR, MD EGD AND/OR COLONOSCOPY Created [address] [place] [phone] Kendrick Moore JR, MD SCHED EGD AND/OR COLONOSCOPY Scheduled 06/11/[address] [place] [phone] Kendrick Moore JR, MD Closed [address] [place] [phone]
--- OUTSIDE RECORDS SUMMARY | 2021-08-09 07:11 | CCD | Summary of Care ---
Author Author [facility] Address Unknown Phone Unavailable Care Team Providers Care Scrap Cutter Name Role Phone Enoc Hawley MD PCP Reason for Visit * Reason Comments Post-op follow-up right ankle SX 03/06/21 * Office Visit (Routine) Referred By Contact Referred To Contact Status Reason Specialty Diagnoses / Procedures Enoc Hawley MD [address] [place] [phone] Rober Singh PA [address] [place] [phone] Email: [email or web address] Authorized Orthopedic Diagnoses Surgery [facility] 03/06/21 - 06/04/21 Right Tibiotalocalcaneal fusion, proximal tibia graft [facility] P rocedures POXR [facility] 06/01/21-11/28/21 RT ANKLE AND FOOT OV, XR, PT, SX Encounter Details Care Team Description Date Type Department Rober Singh PA [address] [place], [place] [id number] S/P ankle fusion (Primary Dx) 06/01/2021 Office Visit [facility] , [facility] [address] [place] [address] Allergies No Known Active Allergiesdocumented as of this encounter (statuses as of 06/01/2021) Medications End Date Status Medication Sig Dispensed Refills Start Date Active busPIRone (BUSPAR) 15 MG Take 15 mg by 0 04/30 tablet mouth daily 6 Active ABILIFY 10 MG tablet Take 10 mg by 0 mouth daily 6 Active Misc. Devices (DURABLE Use as 1 each 0 MEDICAL EQUIPMENT SEE directed. 6 SIG) MISCIndications: Aroldo Brace Primary osteoarthritis of custom right ankle, Arthritis of orthosis right foot Double upright hinged Additional Information Patient not taking. Reported on 06/01/2021 Active Prazosin HCl 1 MG Oral Take 1 mg by 0 01 Capsule (MINIPRESS) mouth daily 9 Active Rosuvastatin Calcium 40 Take 40 mg by 0 MG Oral Tablet (CRESTOR) mouth daily 9 Active Metoprolol Succinate ER Take 50 mg by 0 50 MG Oral Tablet mouth Two 9 Extended Release 24 Hour Times Daily (TOPROL-XL) Active DULoxetine HCl 30 MG Oral Take 60 mg by 0 Capsule Delayed Release mouth daily Particles (CYMBALTA) 03/08/2022 Active metFORMIN HCl 1000 MG Take 1 tablet 60 tablet 11 Oral Tablet by mouth Two 1 (GLUCOPHAGE)Indications: times daily Type 2 Diabetes Mellitus with meals Indications: Type 2 Diabetes Active Zoloft 100 MG Oral Tablet Take 2 0 02/24 tablets by 1 mouth daily 03/09/2022 Active Insulin Glargine 100 Inject 15 1 each 0 03/10 UNIT/ML Subcutaneous Units into 1 Solution (LANTUS) the skin every morning Additional Information Patient not taking. Reported on 06/01/2021 Active insulin lispro 100 Patient 1 each 0 02 UNIT/ML SC injection HIGH Instructions: 1 DOSE EATING INSULIN Please refer patients to Insulin Sliding Scale Instructions in the Discharge Instructions. Active Misc. Devices (DURABLE Use as 1 each 0 MEDICAL EQUIPMENT SEE directed. 1 SIG) XX MISC Custom fitted shoewear Active Simvastatin 40 MG Oral 0 Tablet (ZOCOR) 1 documented as of this encounter (statuses as of 06/01/2021) Active Problems Problem Noted Date Acute blood loss as cause of postoperative anemia Arthritis of right foot 03/06/2021 Hyperlipidemia Anxiety Hypertension PTSD (post-traumatic stress disorder) Type 2 diabetes mellitus documented as of this encounter (statuses as of 06/01/2021) Social History Date Tobacco Use Types Packs/Day Years Used Never Smoker Smokeless Tobacco: Never Used Comments Alcohol Use Standard Drinks/Week rarely Yes 0 (1 standard drink = 0.6 o z pure alcohol) Sex Assigned at Date Recorded Not on file Date Recorded COVID-19 Exposure Response 06/01/2021 12:09 PM EDT In the last month, have you been in contact with No / Unsure someone who was confirmed or suspected to have Coronavirus / COVID-19? documented as of this encounter Last Filed Vital Signs Not on filedocumented in this encounter Progress Notes * Rober Singh PA - 06/01/2021 1:00 PM EDT Chief Complaint Patient presents with Post-op follow-up right ankle SX 03/06/21 HPI: Erik was seen on behalf of Dr. Taylor for follow up evaluation of t heir right ankle. Patient is just about 3 months status post TTC fusion with nely keita. He is doing well. States he has no pain. He is wearing sneakers in the of fice today. Denies fevers chills sweats or calf pain. PHYSICAL EXAM: Medical history, family history, social history and review of sys tems are documented in the chart and reviewed today with Erik. Vitals: There were no vitals taken for this visit. alert oriented x3 in no acute distress. Right ankle shows trace swelling. Healed incisions. No active motion to the an kle or subtalar joint. Calf is soft and supple. No signs of infections or bloo d clots XRAYS: Multiple views of the right ankle were Reviewed in the office today. Int erval healing subtalar and ankle fusions. Intact hardware. ASSESSMENT: Right ankle 3-month status post TTC fusion, doing great PLAN: Treatment options were discussed. The natural history of the patient's pr oblem was discussed with Erik. Patient can continue to slowly increase activit ies as tolerated. 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 We will check him back in the office in 3 months patient will call t he office for any increasing troubles. F/U Xrays: 3 view ankle "This document was dictated using [employer] Speaking [employer] software. A reasonable attempt at proof reading has been made to minimize errors. Please c all our office if you have any questions." documented in this encounter Plan of Treatment Care Team Description Date Type Specialty Rober Singh PA [address] [place] [address] [phone] 09/03/2021 Office Visit Orthopedic Surgery Health Maintenance Due Date Last Done Comments Lipid Disorder Screening 1955 MMR Vaccines (1 of 1 - 1957 Standard series) Varicella Vaccines (1 of 1957 2 - 2-dose childhood series) Pneumococcal Vaccine: 65+ 1962 Years (1 of 2 - PPSV23) Pneumococcal Vaccine: 1961 Pediatrics (0 to 5 Years) and At-Risk Patients (6 to 64 Years) (1 of 2 - PPSV23) DTaP,Tdap,and Td Vaccines 1963 (1 - Tdap) HIV Screening 1969 Diabetic Foot Exam 1974 Dilated Retinal Exam 1974 Urine Microalbumin 1974 Colon Cancer Screening 10 2006 yrs Zoster Vaccines (1 of 2) 2006 Influenza Vaccine 07/27/2021 Hemoglobin A1c 09/06/2021 03/06/2021, 03/06/2021 Hepatitis C Screening (B. Completed 03/07/[id number]) HIB Vaccines Aged Out No longer eligible based on patient's age to complete this topic Hepatitis A Vaccines Aged Out No longer eligibl e based on patient's age to complete this topic Hepatitis B Vaccines Aged Out No longer eligibl e based on patient's age to complete this topic IPV Vaccines Aged Out No longer eligible based on patient's age to complete this topic documented as of this encounter Implants Device Identifier Shelf Expiration Date Model / Serial / L ot Implanted Type Area Manufactur er 03/26/2025 1819-1115S / / [id number] Nail Ankle Arthro [id number] Rt - Right: Ankle STRYK ER [id number] [employer] Implanted: Qty: 1 on 03/06/2021 by DIVISION Geovani Taylor MD at [facility] 10/26/2025 [id number] / / [id number] Screw Ankle Compression T2 - Right: Ankle CHARLIE [id number] [employer] Implanted: Qty: 1 on 03/06/2021 by DIVISION Geovani Taylor MD at [facility] 10/26/2024 [id number] / / [id number] Screw Shaft 5 X50mm T2 - [id number] Right: Ankle S TRYKER Implanted: Qty: 1 on 03/06/2021 by [employer] Geovani Taylor MD at [facility] 12/24/2025 [id number] / / [id number] Screw Locking 5x40 - [id number] Right: Ankle STRYK ER Implanted: Qty: 1 on 03/06/2021 by [employer] Geovani Taylor MD at [facility] 08/26/2025 [id number] / / [id number] Screw Locking 5x80mm T2 Ankle - Right: Ankle STRYK ER [id number] [employer] Implanted: Qty: 1 on 03/06/2021 by DIVISION Geovani Taylor MD at [facility] 01/24/2026 [id number] / / [id number] Screw Locking [id number] - Right: Ankle CHARLIE [id number] [employer] Implanted: Qty: 1 on 03/06/2021 by DIVISION Geovani Taylor MD at [facility] 11/26/2025 [id number] / / [id number] Screw Locking 5x37mm - [id number] Right: Ankle STR YKER Implanted: Qty: 1 on 03/06/2021 by [employer] Geovani Taylor MD at [facility] documented as of this encounter Results Not on filedocumented in this encounter Visit Diagnoses Diagnosis S/P ankle fusion - Primary Other postprocedural status documented in this encounter
[2021-08-09] MEDS ORDERED: propofoL 200 MG/20 ML VIAL As Ordered ONE (08:19)
[2021-08-09] MEDS ORDERED: LIDOCAINE 2% 100MG/5ML SDV (FOR ANES.) As Ordered ONE (08:19)
--- NOTE | 2021-08-09 08:45 | ROOR ---
Patient Name: Erik Everett Procedure Date: 08/09/2021 8:23 AM Date of : 1955 Age: 65 Room: [facility] Gender: Male Note Status: Finalized Procedure: Colonoscopy Indications: High risk colon cancer surveillance: Personal history of colonic polyps Providers: Kendrick Moore Jr, MD Referring MD: Enoc Hawley MD Requesting Provider: Medicines: Propofol per Anesthesia Complications: No immediate complications. Procedure: Pre-Anesthesia Assessment: - Prior to the procedure, a History and Physical was performed, and patient medications and allergies were reviewed. The patient is competent. The risks and benefits of the procedure and the sedation options and risks were discussed with the patient. All questions were answered and informed consent was obtained. Patient identification and proposed procedure were verified by the physician and the nurse in the pre-procedure area and in the procedure room. Mental Status Examination: alert and oriented. Airway Examination: normal oropharyngeal airway and neck mobility. Respiratory Examination: clear to auscultation. CV Examination: normal. ASA Grade Assessment: II - A patient with mild systemic disease. After reviewing the risks and benefits, the patient was deemed in satisfactory condition to undergo the procedure. The anesthesia plan was to use moderate sedation / analgesia (conscious sedation). Immediately prior to administration of medications, the patient was re-assessed for adequacy to receive sedatives. The heart rate, respiratory rate, oxygen saturations, blood pressure, adequacy of pulmonary ventilation, and response to care were monitored throughout the procedure. The physical status of the patient was re-assessed after the procedure. The Colonoscope was introduced through the anus and advanced to the cecum, identified by appendiceal orifice and ileocecal valve. The colonoscopy was performed without difficulty. The patient tolerated the procedure well. The quality of the bowel preparation was adequate. Findings: The rectum, recto-sigmoid colon, cecum, appendiceal orifice and ileocecal valve appeared normal. Many small and large-mouthed diverticula were found in the sigmoid colon. Scattered small and large-mouthed diverticula were found in the descending colon, transverse colon and ascending colon. A small polyp was found in the ascending colon. The polyp was removed with a jumbo cold forceps. Resection and retrieval were complete. Impression: - The rectum, recto-sigmoid colon, cecum, appendiceal orifice and ileocecal valve are normal. - Diverticulosis in the sigmoid colon. - Diverticulosis in the descending colon, in the transverse colon and in the ascending colon. - One small polyp in the ascending colon, removed with a jumbo cold forceps. Resected and retrieved. Recommendation: - Discharge patient to home (ambulatory). - Repeat colonoscopy in 5 years for surveillance. Procedure Code(s): --- Professional --- 09497, Colonoscopy, flexible; with biopsy, single or multiple Diagnosis Code(s): --- Professional --- Z86.010, Personal history of colonic polyps K63.5, Polyp of colon K57.30, Diverticulosis of large intestine without perforation or abscess without bleeding CPT copyright 2019 [employer]. All rights reserved. The codes documented in this report are preliminary and upon rock climbing team member review may be revised to meet current compliance requirements. Kendrick Moore MD Kendrick Moore Jr, MD 08/09/2021 8:44:59 AM Electronically signed by Kendrick Moore Jr, MD Number of Addenda: 0 Note Initiated On: 08/09/2021 8:23 AM Estimated Blood Loss: Estimated blood loss: none.
[2021-08-09 09:04] VITALS: BP 137/84
== END 2021-08-09 09:10 | disposition home or self-care (01) ==
LOC: M OPP 07:05
PROVIDERS: ATTEND Surgery
DX: Z12.11 Encounter for screening for malignant neoplasm of colon (principal); Z86.010 Personal history of colon polyps; K63.5 Polyp of colon; K57.30 Diverticulosis of large intestine without perforation or abscess without bleeding; E11.9 Type 2 diabetes mellitus without complications; Z79.84 Long term (current) use of oral hypoglycemic drugs; Z79.899 Other long term (current) drug therapy